=== PATIENT | male | born 1980 | race Caucasian/White ===

== ENCOUNTER 2019-01-21 23:15 | Inpatient (IN) ==
[2019-01-22 00:20] LABS: Appearance Urine Clear (Clear); Bilirubin Urine Negative (Negative); Blood Urine Negative (Negative); Color Urine Yellow; Glucose Urine UA Negative (Negative); Ketones Urine Negative (Negative); Leukocyte Esterase Urine Negative (Negative); Nitrite Urine Negative (Negative); Protein Urine Negative (Negative); Specific Gravity Urine 1.013 (1.000-1.030); Urobilinogen Urine Negative (Negative); pH Urine 6.5 (4.5-7.5)
[2019-01-22 00:21] LABS: Basophils # (auto) 0.07 K/uL (0-0.2); Basophils % (auto) 0.8 %; Eosinophils # (auto) 0.34 K/uL (0-0.5); Eosinophils % (auto) 3.7 %; Hematocrit (blood only) 42.1 % (42-52); Hemoglobin 15.2 g/dL (14.0-18.0); Immature Granulocytes # (auto) 0.02 K/uL (0.00-0.02); Immature Granulocytes % (auto) 0.2 %; Lymphocytes # (auto) 2.54 K/uL (1.2-3.4); Lymphocytes % (auto) 27.5 %; Mean Corpuscular Hemoglobin 30.7 pg (25-34); Mean Corpuscular Hgb Conc 36.1 g/dL (32-36); Mean Corpuscular Volume 85.1 fL (80-100); Mean Platelet Volume 9.9 fL (7.4-10.4); Monocytes # (auto) 0.95 K/uL (0.11-0.59); Monocytes % (auto) 10.3 %; Neutrophils # (auto) 5.31 K/uL (1.4-6.5); Neutrophils % (auto) 57.5 %; Platelet Count 225 K/uL (130-400); RDW Coefficient of Variation 12.1 % (11.5-14.5); RDW Standard Deviation 37.4 fL (36.4-46.3); Red Blood Count 4.95 M/uL (4.7-6.1); White Blood Count 9.23 K/uL (4.8-10.8)
[2019-01-22 00:40] LABS: Albumin Level 3.8 gm/dl (3.4-5.0); BUN Creatinine Ratio 10.5 (10-20); Calcium 8.6 mg/dl (8.5-10.1); Creatinine Clr Calc Pharmacy 84.8 ml/min; Est GFR (Non-African American) 62.9; Magnesium 2.3 mg/dl (1.8-2.4); Potassium 4.2 mmol/L (3.5-5.1)
[2019-01-22 00:54] LABS: Bilirubin,Total 0.4 mg/dl (0.2-1); Globulin 3.7 gm/dl (2.5-4.0); Thyroid Stimulating Hormone 2.95 uIu/ml (0.300-4.500); Total Protein 7.5 gm/dl (6.4-8.2)
[2019-01-22 01:10] LABS: Lyme Ab IgG w/WB Rflx Negative (Negative)
[2019-01-22 01:11] LABS: Lyme Ab IgM w/WB Rflx Equivocal (Negative)
[2019-01-22] MEDS ORDERED: GADOBUTROL 65ML VIAL IV PRN (02:15)
[2019-01-22] MEDS: SODIUM CHLORIDE 0.9% 500 ML IV SCH ×2 (02:44→06:35)
--- NOTE | 2019-01-22 05:40 | History & Physical Report ---
Date of Service January 22, 2019 Assessment & Plan (1) Muscle weakness: 38-year-old male with no significant past medical or surgical history presenting with 2 weeks of proximal muscle weakness/fatigability, distal muscle weakness in the legs manifested his foot drop and gait instability, distal paresthesias in the fingers and toes. Symptoms are constant. No family history of myopathy or muscular disease. Possible precipitating factors include workout supplement use, tick bite, less likely injury from nail. Neurological exam within no objective muscle weakness or tenderness. Patient does have some gait instability, positive Romberg and difficulty writing. 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 -Admit to medical floor -We will check aldolase, LDH, ESR, CRP, ADE, B12, vitamin D - we will follow-up on Lyme serology. Also check for ehrlichiosis and anaplasmosis -Patient may need EMG and muscle biopsy in the future -Neurology consult. Appreciate assistance. Present on Admission?: Yes (2) Gait instability: As above. -Fall precautions Present on Admission?: Yes (3) Paresthesias: As above. Present on Admission?: Yes (4) Rhabdomyolysis: Elevated CK at 1241. -Normal saline at 125 mL/h x 2 L -Repeat CK prior to discharge -Patient may need muscle biopsy in the future FENnormal saline at 125 mL/h x 2 L, electrodes within normal limits, regular diet as tolerated Prophylaxis-Lovenox for DVT prophylaxis Code-full Disposition-admit to medical floor Present on Admission?: Yes History of Present Illness Chief Complaint: Muscle weakness Primary Care Provider: Daniel Villalta Rex Muñoz is a pleasant 38-year-old male with no significant past medical or surgical history presenting with muscle weakness and elevated CK. Patient was seen in the ER on 01/15 similar complaints. Symptoms began around January 08. He is complaining of muscle weakness mostly present in the hips and shoulders. Patient reports having difficulty getting up from a seated position as well as difficulty performing overhead tasks. He also comments on easy fatigability of his proximal muscles. He has paresthesias of his fingers and toes bilaterally which are worsened with walking and prolonged standing. Patient has a difficult time holding a pen to write. He has an unsteady gait, feels as though he cannot fully lift his legs and that his feet drag. This has resulted in 2 falls in the home over the last few days. No head trauma or loss of consciousness. He has some muscle stiffness. He also had some cramping in his bilateral calves and feet last week which has since resolved. He is also complaining of painful touch to the base of his skull and from his scientologist down his jaw bilaterally. States he gets cramping in his jaw and claudication with chewing. He denies muscle pain, myoclonic jerking or twitching. He denies fevers, chills, sweats, weight loss He denies slurred speech, difficulty swallowing, blurry vision or loss of vision, ptosis, pain with eye movement He has had multiple tick bites in the past. Had confirmed Lyme disease approximately a year and a half ago which was treated with a full course of antibiotics. He had an incident in mid December where he had a superficial wound caused by a haroldo nail. He was seen in the emergency room and administered a tetanus shot. He takes a number of workout supplements - Testone, Growth, Eshred and Latobolic ER course: Normal saline Allergies Allergy/AdvReac Type Severity Reaction Status Date / Time No Known Allergies Allergy Verified 01/21/19 23:55 Home Medications Home Medications Medication Instructions Recorded Confirmed Type omeprazole magnesium [Prilosec OTC] 20 mg PO DAILY 01/21/19 01/21/19 History Past Med/Surg History Medical History Lyme disease (Chronic) GERD (gastroesophageal reflux disease) No significant past surgical history Family History Mother Heart disease Social History Preferred Language: Guamanian Feels Safe at Home: Yes Smoking Status: Former smoker Hx Alcohol Use: Yes (Social use) Hx Substance Use: No Review of Systems Review of Systems: All systems reviewed & are unremarkable except as noted in HPI & below Physical Exam Physical Exam: General: patient resting comfortably, NAD, anxious but non- toxic in appearance, AA&O x 4 Skin: warm, dry, intact, no rashes or lesions HEENT: NC/AT, PERRL, EOMI, anicteric sclera, conjunctiva without injection, external ear normal to inspection and nontender, nares patent, moist mucus membranes, dentition intact, no oropharyngeal lesions, neck supple, trachea midline, no LAD, no thyromegaly, no JVD, tenderness with palpation of bilateral temporal region down to jaw Heart: +S1/S2, regular, no m/r/g Lungs: equal air entry bilaterally, no rales/rhonchi/wheezes Abd: +BS, soft, NT/ND, no masses/organomegaly/ascites Ext: warm, 2+ pulses in UE/LE bilaterally, no clubbing/cyanosis or edema Neuro: Patient awake alert and oriented x4, speech fluent/clear and appropriate, cranial nerves II through XII grossly intact, sensation to light touch intact and equal bilaterally, muscle strength 5 out of 5 in bilateral hands/wrists/arms/legs. No pronator drift. Mqlclc-[id number]-erac and vuoy-dx-[id number] in tact. Patient with positive Romberg. Ataxic gait possibly with mild foot drop bilaterally, patient unable to walk heel-to-toe due to imbalance. Difficulty writing. Results & Data Vital Signs (Past 12 Hours) Vital Signs Temp Pulse Resp BP Pulse Ox 01/22/19 04:55 78 20 144/95 H 96 01/22/19 02:41 77 20 97 01/22/19 02:40 146/84 H 01/22/19 01:00 75 14 96 01/22/19 00:30 77 14 97 01/22/19 00:16 79 15 96 01/22/19 00:09 96 01/21/19 23:20 36.7 C 80 20 154/104 H 97 Laboratory Results Lab Results 01/22/19 01/22/19 01/22/19 Range/Units 00:00 00:02 00:02 WBC 9.23 (4.8-10.8) K/uL RBC 4.95 (4.7-6.1) M/uL Hgb 15.2 (14.0-18.0) g/dL Hct 42.1 (42-52) % MCV 85.1 (80-100) fL MCH 30.7 (25-34) pg MCHC 36.1 H (32-36) g/dL RDW Std Deviation 37.4 (36.4-46.3) fL RDW Coeff of Ricardo 12.1 (11.5-14.5) % Plt Count 225 (130-400) K/uL MPV 9.9 (7.4-10.4) fL Immature Gran % (Auto) 0.2 % Neut % (Auto) 57.5 % Lymph % (Auto) 27.5 % Blount % (Auto) 10.3 % Eos % (Auto) 3.7 % Baso % (Auto) 0.8 % Immature Gran # (Auto) 0.02 (0.00-0.02) K/uL Neut # (Auto) 5.31 (1.4-6.5) K/uL Lymph # (Auto) 2.54 (1.2-3.4) K/uL Blount # (Auto) 0.95 H (0.11-0.59) K/uL Eos # (Auto) 0.34 (0-0.5) K/uL Baso # (Auto) 0.07 (0-0.2) K/uL Sodium 138 (136-145) mmol/L Potassium 4.2 (3.5-5.1) mmol/L Chloride 106 (98-107) mmol/L Carbon Dioxide 26 (21-32) mmol/L Anion Gap 6.0 (3-11) BUN 15 (7-18) mg/dl Creatinine 1.39 (0.6-1.4) mg/dl Est Cr Clr Drug Dosing 84.8 ml/min Est GFR ( Amer) 73.0 Est GFR (Non-Af Amer) 62.9 BUN/Creatinine Ratio 10.5 (10-20) Glucose 119 H (70-99) mg/dl Calcium 8.6 (8.5-10.1) mg/dl Magnesium 2.3 (1.8-2.4) mg/dl Total Bilirubin 0.4 (0.2-1) mg/dl AST 46 H (15-37) U/L ALT 73 (12-78) U/L Alkaline Phosphatase 80 (45-117) U/L Total Creatine Kinase 1241 H (39-308) U/L Total Protein 7.5 (6.4-8.2) gm/dl Albumin 3.8 (3.4-5.0) gm/dl Globulin 3.7 (2.5-4.0) gm/dl Albumin/Globulin Ratio 1.0 (0.9-2) TSH 2.950 (0.300-4.500) uIu/ml Urine Color Yellow Urine Appearance Clear (Clear) Urine pH 6.5 (4.5-7.5) Ur Specific [place] 1.013 (1.000-1.030) Urine Protein Negative (Negative) Urine Glucose (UA) Negative (Negative) Urine Ketones Negative (Negative) Urine Blood Negative (Negative) Urine Nitrite Negative (Negative) Urine Bilirubin Negative (Negative) Urine Urobilinogen Negative (Negative) Ur Leukocyte Esterase Negative (Negative) Lyme Disease IgG Ab (Negative) Lyme Disease IgM Ab (Negative) 01/22/19 Range/Units 00:02 WBC (4.8-10.8) K/uL RBC (4.7-6.1) M/uL Hgb (14.0-18.0) g/dL Hct (42-52) % MCV (80-100) fL MCH (25-34) pg MCHC (32-36) g/dL RDW Std Deviation (36.4-46.3) fL RDW Coeff of Ricardo (11.5-14.5) % Plt Count (130-400) K/uL MPV (7.4-10.4) fL Immature Gran % (Auto) % Neut % (Auto) % Lymph % (Auto) % Blount % (Auto) % Eos % (Auto) % Baso % (Auto) % Immature Gran # (Auto) (0.00-0.02) K/uL Neut # (Auto) (1.4-6.5) K/uL Lymph # (Auto) (1.2-3.4) K/uL Blount # (Auto) (0.11-0.59) K/uL Eos # (Auto) (0-0.5) K/uL Baso # (Auto) (0-0.2) K/uL Sodium (136-145) mmol/L Potassium (3.5-5.1) mmol/L Chloride (98-107) mmol/L Carbon Dioxide (21-32) mmol/L Anion Gap (3-11) BUN (7-18) mg/dl Creatinine (0.6-1.4) mg/dl Est Cr Clr Drug Dosing ml/min Est GFR ( Amer) Est GFR (Non-Af Amer) BUN/Creatinine Ratio (10-20) Glucose (70-99) mg/dl Calcium (8.5-10.1) mg/dl Magnesium (1.8-2.4) mg/dl Total Bilirubin (0.2-1) mg/dl AST (15-37) U/L ALT (12-78) U/L Alkaline Phosphatase (45-117) U/L Total Creatine Kinase (39-308) U/L Total Protein (6.4-8.2) gm/dl Albumin (3.4-5.0) gm/dl Globulin (2.5-4.0) gm/dl Albumin/Globulin Ratio (0.9-2) TSH (0.300-4.500) uIu/ml Urine Color Urine Appearance (Clear) Urine pH (4.5-7.5) Ur Specific [place] (1.000-1.030) Urine Protein (Negative) Urine Glucose (UA) (Negative) Urine Ketones (Negative) Urine Blood (Negative) Urine Nitrite (Negative) Urine Bilirubin (Negative) Urine Urobilinogen (Negative) Ur Leukocyte Esterase (Negative) Lyme Disease IgG Ab Negative (Negative) Lyme Disease IgM Ab Equivocal A (Negative) Diagnostic Findings MRI C-spine: Per stat rad-spinal cord is normal in signal and caliber. C3-C4 posterior disc bulge and non-convertible osteophytes cause mild canal and mild bilateral foraminal stenosis. C4-C5 posterior disc protrusion and on convertible osteophytes cause mild canal and mild bilateral foraminal stenosis. C5-C6 posterior disc bulge cause mild canal, moderate left and mild right foraminal stenosis. No evidence of fracture or malalignment MRI brain: Per stat rad-no intracranial hemorrhage, mass-effect or edema. No foci of acute ischemia. No abnormal foci of signal or enhancement in the brain parenchyma ECG Additional Comments: The study shows normal sinus rhythm at 72 bpm normal axis and intervals, no evidence of acute ischemia. Study unchanged from prior 01/15/2019 Code Status & VTE Plan Code Status Full code VTE Prophylaxis Plan VTE Prophylaxis will be ordered: Yes PG Care Time/CCT Total # of Minutes Spent Total Time Spent with Patient: Total time spent is greater than 50% in coordination of care (as documented) at patient's floor/unit and/or counseling patient: (1) Rhabdomyolysis Rhabdomyolysis type: non-traumatic Qualified Code(s): M62.82 - Rhabdomyolysis
[2019-01-22] MEDS ORDERED: ACETAMINOPHEN 325 MG TAB PO PRN (06:18)
[2019-01-22] MEDS: SODIUM CHLORIDE 0.9% 1000ML 1,000 ML IV SCH ×2 (06:30→16:20)
[2019-01-22] MEDS ORDERED: TRAMADOL HCL 50 MG TABLET PO PRN (06:34)
--- NOTE | 2019-01-22 07:48 | Magnetic Resonance Report ---
CERVICAL SPINE MRI HISTORY: c-spine pain with cervical radicular symptoms TECHNIQUE: Multiplanar multisequence MRI of the cervical spine was performed without the use of contr ast. COMPARISON STUDY: None. FINDINGS: Straightening of the cervical spine. Minimal disc space narrowing at C4-C5 and C5-C6. Riddhi l marrow signal intensity seen throughout the visualized osseous structures. No fracture or subluxati on. Prevertebral soft tissues and the C1-C2 interval are intact. The visualized posterior fossa is un remarkable. Slight dilatation of the central canal within the cervical spinal cord at the C7 level. T his measures approximately 1 cm length. The central canal measures up to 2 mm in maximal diameter. Ot herwise, the cervical spinal cord demonstrates a normal signal intensity. C2-C3: No significant central canal or neural foraminal narrowing. C3-C4: Tiny broad-based posterior disc bulge without significant central canal or neural foraminal na rrowing. C4-C5: Small broad-based posterior disc bulge with a small focal central disc protrusion. This abuts but does not significantly deform the anterior cord. There is mild bilateral neural foraminal narrowi ng due to the uncovertebral hypertrophy. C5-C6: Broad-based posterior disc bulge resulting in near complete effacement of the anterior thecal sac without cord deformity. There is mild right and moderate left neural foraminal narrowing. C6-C7: No significant central canal or neural foraminal narrowing. C7-T1: No significant central canal or neural foraminal narrowing. IMPRESSION: 1. Mild degenerative disc disease C3-C6 as described above. 2. Tiny syrinx at the C7 level. Otherwise, the cervical spinal cord is within normal limits. Electronically signed by: Kane Alfonso M.D. 01/22/2019 7:47 AM
--- NOTE | 2019-01-22 07:53 | Magnetic Resonance Report ---
Brain MRI WITH AND WITHOUT CONTRAST HISTORY: extremity weakness/numbness TECHNIQUE: Multiplanar multisequence MRI of the brain was performed both before and after the intrave nous administration of contrast. COMPARISON STUDY: None. FINDINGS: There are no areas of restricted diffusion to suggest acute infarction. The midline structu res are intact. The paranasal sinuses are clear. The mastoid air cells are clear. The ventricles and sulci are within normal limits for age. There is no mass, hematoma, midline shift. The major vascular flow-voids at the skull base are well maintained. Postcontrast sequences show no areas of abnormal e nhancement. IMPRESSION: No acute intracranial abnormality. Electronically signed by: Kane Alfonso M.D. 01/22/2019 7:52 AM
[2019-01-22] MEDS: PANTOprazole 40 MG TAB PO SCH (10:41)
[2019-01-22] MEDS: ENOXAPARIN INJ 40 MG/0.4 ML SYR SQ SCH (10:41)
[2019-01-22] MEDS ORDERED: cefTRIAXone SODIUM 2,000 MG in DEXTROSE 5% 50 ML IV SCH (12:00)
--- NOTE | 2019-01-22 13:04 | Neurology Consultation ---
Date of Consultation January 22, 2019 Assessment & Plan (1) Muscle weakness: (2) Paresthesias: (3) Gait instability: (4) Rhabdomyolysis: (5) Lyme disease: Patient has a subacute onset of weakness, fatigue, low back and cervical spine muscular pain, gait disturbance with right hip pain and numbness and dysesthesias in the hands and feet bilaterally. His CK is elevated at over 1200. He has decreased triceps and quadriceps reflexes and absent Achilles reflexes on exam. MRI of the brain was unremarkable. 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 There are no upper motor neuron signs in the lower extremities and I do not think the syrinx is clinically active. His Lyme antibody titer was equivocal for IgM Western blot is pending. He has pulled multiple ticks off his body this summer. Overall, this patient may have weakness, pain, and numbness from acute Lyme disease. Other tick-borne illnesses are possible. He has been on supplements for his weight training over the last month. Unfortunately we do not have the ingredients of these 4 different products. These may be contributing to his symptoms as well. There is no other metabolic, infectious, endocrine or inflammatory condition identified so far. Do not believe this fits with acute inflammatory demyelinating polyneuropathy (Guillain-[place] syndrome) Recommendations 1. Physical therapy 2. Awaiting Lyme Western blot but initiate ceftriaxone empirically 3. Follow CKs and awaiting aldolase. 4. Could consider MRI of the lumbar spine. I see no reason for a lumbar puncture. 5. Discontinue his weight training supplements. We need to get the bottles in or figure this out from online pictures to see with the ingredients are. 6. Consider EMG and nerve conduction studies as an outpatient next week if still needed. Overall, I spent a total of 80 minutes with this case including review of records, review of MRI films, direct evaluation the patient bedside, and discussion of the case with the patient at bedside and Dr. Beauchamp, including differential diagnosis and treatment options. History of Present Illness Reason for Consultation: Year old, who I was asked to see at the request of Dr. Beauchamp, for neurologic consultation regarding weakness and elevated CK. Requesting Physician: Dr. Beauchamp Attending Physician: Epifanio Beauchamp, DO History of Present Illness Patient has no history of neurologic conditions including weakness or numbness in the past. He has never had significant head trauma or meningitis. About a year and half ago he had a tick bite which made him sore all over and tired. He was treated with oral pills and his symptoms resolved. About 2 months ago he started a new workout regimen which involved doing pushups, pull-ups, curls, squats, and lunges, etc. Approximately 1 month ago he started taking 4 different supplements 5 star which include a fat burner, estrogen sera, testosterone booster, and a 4th one of which he is not sure. About 2 weeks ago he had the onset of pins and needle sensations in his finger tips. The next day involved his feet. He also noted weakness in the muscles in general in all 4 limbs symmetrically. The muscles themselves were not tender or sore but he was noticeably weak. At the same time he started getting low back pain of a non radiating nature. He had pain at the base of the skull as well. This translated to a pressure headache all over. He had no vision problems, swallowing issues, speech problems, confusion, or incontinence. His jaws became very sore and achy any could not open his mouth all the way. He would have cramps in his calves bilaterally. He was in the emergency room January 15 with a blood pressure 156/99 and was afebrile. CK was 1099 and then an hour to later after hydration was 837. Continue to have symptoms of the numbness and dysesthesias distally in his hands and feet as well as the weakness. His gait was affected any at some hip pain on the right and fell twice January 21. He lost his balance and his leg buckled he felt. He was admitted to our institution on January 22. He is fatigued as well. CBC was unremarkable. Sed rate was 10. Chem profile was unremarkable and LDH was 171. AST was 46 and CK was 1241. Urinalysis was negative. ADE, B12, and aldolase are pending. TSH was 2.95. Lyme IgM was equivocally positive and Western blot is pending. He is going to be started on ceftriaxone. Today this morning he feels was the same as he did yesterday with no changes. A pressure is 134/88. MRI of the brain was unremarkable. MRI of the cervical spine shows some minor degenerative changes at multiple levels and no significant spinal stenosis. There was a slightly dilated central canal over 1 centimeter at the C7 level. It was no more than 1-2 millimeters diameter. I reviewed all these films. Allergies Allergy/AdvReac Type Severity Reaction Status Date / Time No Known Allergies Allergy Verified 01/21/19 23:55 Home Medications Home Medications Medication Instructions Recorded Confirmed Type omeprazole magnesium [Prilosec OTC] 20 mg PO DAILY 01/21/19 01/21/19 History Patient History Medical History Lyme disease (Chronic) GERD (gastroesophageal reflux disease) No significant past surgical history Surgical History S/P wisdom tooth extraction Family History Mother Heart disease Father Stomach cancer Social History Preferred Language: Macedonian Communication Ability: Effective Hr Coordinator Required: No Beliefs That Will Affect Care: None Current Living Situation: Alone current occupational status: employed 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 Feels Safe at Home: Yes Smoking Status: Former smoker Tobacco Type: cigarettes ; Number of Years Since Quit: 15 ; Hx Alcohol Use: Yes Alcohol type: beer Alcohol Intake Frequency Comment: One per week Hx Substance Use: No Review of Systems Constitutional: + fatigue and + weakness; no fever Eyes: no diplopia, no eye pain and no worsening vision Ear, Nose, Mouth, Throat: no ear pain, no tinnitus, no hearing loss, no dizziness, no snoring, no hoarseness and no dysphagia Respiratory: no cough and no dyspnea Cardiovascular: no chest pain, no palpitations and no lightheadedness Gastrointestinal: no abdominal pain, no nausea and no vomiting Genitourinary: no dysuria and no urinary incontinence Musculoskeletal: + back pain and + neck pain; no radicular pain, no joint pain and no myalgia Integumentary: no rash and no lesions Neurologic: + gait abnormality, + generalized weakness, + loss of sensation, + tingling, + numbness, + paresthesia and + headache(s); no localized weakness, no tremor(s), no abnormal movements, no abnormal speech, no confusion and no memory loss Psychiatric: no depression, no irritability, no anxiety, no difficulty concentrating, no confusion and no hallucinations Endocrine: + fatigue; no flushing Hematologic / Lymphatic: no easy bleeding and no easy bruising Allergy / Immunological: no urticaria and no problem reported Physical Exam Physical Exam: The patient is right-handed. The patient is awake, alert, and attentive. Speech is normal without any aphasia or dysarthria. She can name objects, repeat phrases, and has normal spontaneous speech. Mentation and thought processes are intact, with orientation to person, place and time, and normal fund of knowledge. Attention and concentration are normal. Mood and affect are normal and appropriate. General appearance and grooming are normal. Short and long-term memory are intact. The discs are sharp with positive venous pulsations bilaterally. There are no exudates, hemorrhages, or blood vessel changes seen. Pupils are 4 mm bilaterally and reactive to light. Extraocular eye muscles are intact without nystagmus. Visual acuity and visual mcadams seem normal grossly to confrontation. There are no deficits to sensation in the face in all 3 distributions of the fifth cranial nerve bilaterally. Corneal reflexes are positive bilaterally. Facial strength and symmetry was normal bilaterally. Hearing seems normal to whisper and finger rub bilaterally. Palate moves well without asymmetry. There is normal sternocleidomastoid and trapezius (shoulder shrug) strength bilaterally. Tongue is midline with good strength bilaterally. Neck has a full range of motion without discomfort. There are no cervical bruits bilaterally. There are no cranial or ocular bruits. Heart is without murmur. There is a regular rhythm and rate. Cervical, thoracic, and lumbar spine are nontender to palpation. Gait is narrow based, with good arm swing, turns, and stance. Patient limps some secondary to right hip pain. Stance is good feet together and eyes open. With outstretched arms there is no drift. There are no resting, postural, or action tremors. There is no ataxia with finger to nose testing. There is good facility in the hands. No other abnormal involuntary movements are noted. Motor strength is 4/5 proximally in the arms with deltoids bilaterally. Biceps and triceps are 4+/5. Online Retail[employer] and intrinsic hand muscles are 4/5 bilaterally. W rist flexor and extensors are 4+/5 bilaterally. Hip flexor strength is 4/5 bilaterally. Quadriceps, hamstring, tibialis anterior, gastrocnemius, and toe extensors are 5/5 bilaterally. The limbs have good tone without rigidity or spasticity. There is no atrophy noted in the muscles. Muscle bulk is normal, there is no tenderness to palpation, no myotonia to percussion, and no fasciculations seen. Sensory examination reveals some decreased sensation to pin and touch in a stocking-glove distribution to the ankles and wrists bilaterally. More proximally sensation is spared. Reflexes are 2/4 in the biceps and brachioradialis tendons bilaterally. Triceps and quadriceps tendon reflexes are 1/4 bilaterally. Achilles tendon reflexes are absent bilaterally. There is no clonus bilaterally. Toes are downgoing with plantar stimulation bilaterally. Peripheral pulses are present and of normal quality distally in all 4 limbs. There is no peripheral edema noted in the limbs. Results & Data Vital Signs (Past 12 Hours) Vital Signs Temp Pulse Pulse Resp BP BP Pulse Ox 01/22/19 11:13 36.8 C 79 18 134/88 95 01/22/19 06:31 37.2 C 92 H 16 157/93 H 96 01/22/19 04:55 78 20 144/95 H 96 01/22/19 02:41 77 20 97 01/22/19 02:40 146/84 H 01/22/19 01:00 75 14 96 Diagnostic Findings Brain MRI WITH AND WITHOUT CONTRAST HISTORY: extremity weakness/numbness TECHNIQUE: Multiplanar multisequence MRI of the brain was performed both before and after the intravenous administration of contrast. COMPARISON STUDY: None. FINDINGS: There are no areas of restricted diffusion to suggest acute infar ction. The midline structures are intact. The paranasal sinuses are clear. The mastoid air cells are clear. The ventricles and sulci are within normal limits for age. There is no mass, hematoma, midline shift. The major vascular flow- voids at the skull base are well maintained. Postcontrast sequences show no areas of abnormal enhancement. IMPRESSION: No acute intracranial abnormality. Electronically signed by: Kane Alfonso M.D. 01/22/2019 7:52 AM [facility], [place] [phone] Magnetic Resonance Report Patient: ENDY ROSENBAUM AAdmit Date: 01/22/19 MR#: [id number]: [address] Acct ID:[id number]: Date: 1980[facility] Zip: [place] [id number] Age: 38Location: 2W Sex: M Room[facility]Bed: [facility] Att Phy: Nadya Chou D.O.Diagnosis: GAIT INSTABILITY, ELEVATED CK Maryann Phy: Cece FieldsCYNTHIA Casillas-CService Date: 01/22/19 Fam Phy: Interpreting Phy: Kane Alfonso MD Admit Phy: Nadya Chou D.O. Ordering Phy: Lynn Najera D.O. cc: ~ CERVICAL SPINE MRI HISTORY: c-spine pain with cervical radicular symptoms TECHNIQUE: Multiplanar multisequence MRI of the cervical spine was performed without the use of contrast. COMPARISON STUDY: None. FINDINGS: Straightening of the cervical spine. Minimal disc space narrowing at C4-C5 and C5-C6. Normal marrow signal intensity seen throughout the visualized osseous structures. No fracture or subluxation. Prevertebral soft tissues and the C1-C2 interval are intact. The visualized posterior fossa is unremarkable. Slight dilatation of the central canal within the cervical spinal cord at the C7 level. This measures approximately 1 cm length. The central canal measures up to 2 mm in maximal diameter. Otherwise, the cervical spinal cord demonstrates a normal signal intensity. C2-C3: No significant central canal or neural foraminal narrowing. C3-C4: Tiny broad-based posterior disc bulge without significant central canal or neural foraminal narrowing. C4-C5: Small broad-based posterior disc bulge with a small focal central disc protrusion. This abuts but does not significantly deform the anterior cord. There is mild bilateral neural foraminal narrowing due to the uncovertebral hypertrophy. C5-C6: Broad-based posterior disc bulge resulting in near complete effacement of the anterior thecal sac without cord deformity. There is mild right and moderate left neural foraminal narrowing. C6-C7: No significant central canal or neural foraminal narrowing. C7-T1: No significant central canal or neural foraminal narrowing. IMPRESSION: 1. Mild degenerative disc disease C3-C6 as described above. 2. Tiny syrinx at the C7 level. Otherwise, the cervical spinal cord is within normal limits. Electronically signed by: Kane Alfonso M.D. 01/22/2019 7:47 AM [facility] Care Time/CCT Total # of Minutes Spent Total Time Spent with Patient: Total time spent is greater than 50% in coordination of care (as documented) at patient's floor/unit and/or counseling patient: (1) Rhabdomyolysis Rhabdomyolysis type: non-traumatic Qualified Code(s): M62.82 - Rhabdomyolysis
--- NOTE | 2019-01-22 15:38 | Emergency Department Note ---
Entered by Daniel Perez acting as a scribe for Lynn Najera DO History of Present Illness General Chief complaint: Neuro Symptoms/Deficit Stated complaint: NO FEELING IN FINGERS, FEET, PAIN IN NECK Time Seen by Provider: 01/21/19 23:39 Source: patient History of Present Illness Onset (ago): week(s) 2 Location: upper extremity (weakness) and lower extremity (weakness) Pain Consistency: + other (worsening) Maximum Pain Intensity: 4 Quality: + other ("pins and needles" numbness) Associated symptoms: + denies other symptoms (trouble with urination, trouble with bowel movements and confusion) and + other (constant lower back pain, pain at the base of his skull, and calf pain); no fever/chills and no nausea/vomiting The patient is a 38 year old M who presents to the Emergency Room with complaints of worsening weakness that started 2 weeks ago. The patient states that his symptoms started 2 weeks ago with numbness in his fingers. He describes his prior numbness as pins and needles. He notes that his pins and needles numbness progressed to his toes. He states that he is currently experiencing weakness in all 4 of his extremities. He notes that due to this weakness, he has fallen 2 times while walking. He denies that he hurt himself from the fall. He adds that he is also experiencing constant lower back pain, pain at the base of his skull, and calf pain. He denies that he is currently experiencing fevers, chills, nausea, vomiting, trouble with urination, trouble with bowel movements and confusion. He notes that he was in the ED recently for similar symptoms. He notes that prior to his ED visit, he had blood tests done which were normal. He adds that since his last ED visit, he has drank an increased amount of water because of the diagnosed elevated total CK. He denies any alcohol or drug use. Had been using workout supplements but stopped taking those after the last emergency department visit. He states that he has a history of Lymes disease. He adds that prior to his onset of Lymes disease he noticed a tick bite on his body. He adds that he took antibiotics for Lymes disease but notes that he has felt tired since then. He denies that he has a family history of neurological issues. He adds that his mother has heart disease. Home Medications Home Medications Medication Instructions Recorded Confirmed Type omeprazole magnesium [Prilosec OTC] 20 mg PO DAILY 01/21/19 01/21/19 History Allergies Allergy/AdvReac Type Severity Reaction Status Date / Time No Known Allergies Allergy Verified 01/21/19 23:55 Past Med/Surg History Medical History Lyme disease (Chronic) GERD (gastroesophageal reflux disease) No significant past surgical history Surgical History S/P wisdom tooth extraction Family History Mother Heart disease Father Stomach cancer Social History Preferred Language: Hungarian Communication Ability: Effective Market Research Intern Required: No Beliefs That Will Affect Care: None Current Living Situation: Alone current occupational status: employed 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 and A total of 10 systems reviewed and were otherwise negative Physical Exam Vital Signs Vital Signs - 24 hr 01/21/19 23:20 01/22/19 00:09 01/22/19 00:16 Temperature 36.7 C Temperature Source Oral Sepsis Action Taken by Nursing No Action Required Pulse Rate 80 79 Pulse Rate from SpO2 Sensor 76 Respiratory Rate 20 15 Respiratory Effort / Characteristics Non-Labored Spontaneous Respiratory Depth Normal Blood Pressure 154/104 H Blood Pressure Mean 120 Pulse Oximetry 97 96 96 Oxygen Delivery Method Room Air Room Air 01/22/19 00:30 01/22/19 01:00 01/22/19 02:40 Temperature Temperature Source Sepsis Action Taken by Nursing Pulse Rate 77 75 Pulse Rate from SpO2 Sensor 78 74 Respiratory Rate 14 14 Respiratory Effort / Characteristics Respiratory Depth Blood Pressure 146/84 H Blood Pressure Mean 104 Pulse Oximetry 97 96 Oxygen Delivery Method 01/22/19 02:41 01/22/19 04:55 Temperature Temperature Source Sepsis Action Taken by Nursing Pulse Rate 77 78 Pulse Rate from SpO2 Sensor 78 Respiratory Rate 20 20 Respiratory Effort / Characteristics Respiratory Depth Blood Pressure 144/95 H Blood Pressure Mean 111 Pulse Oximetry 97 96 Oxygen Delivery Method Room Air HEENT: Head - normocephalic and atraumatic. Pupils are equal, round, and reactive to light. Extraocular eye muscles are intact and sclera are anicteric. Ears - bilaterally patent canals with noninjected tympanic membranes and no evidence of hemotympanum. Nose - moist nasal mucosa without discharge. Mouth - moist buccal mucosa. Oropharynx is nonerythematous and there is no tonsillar exudate or edema noted. Neck: Supple; no JVD, nuchal rigidity, cervical lymphadenopathy, or auscultated bruits. Heart: Regular rate and rhythm. There is a normal S1 and S2 with no murmurs, clicks, or gallops appreciated. Lungs: Clear to auscultation bilaterally with no wheezes, rales, or rhonchi. Abdomen: Soft, completely nontender, nondistended, with good bowel sounds. There are no palpable pulsatile masses or hepatosplenomegaly. There is no guarding, rigidity, or rebound noted. Extremities: No evidence of cyanosis, clubbing, or edema. There are easily palpable peripheral pulses. Neuro: The patient is awake and alert, oriented to day, time, and place. Muscle strength is 5/5 in all 4 extremities. The patient has equal core paster strength and equal pedal push and pull. There are no cerebellar signs. Cranial nerves II-XII are intact. Course 2344: The patient was evaluated in room C9. A complete history and physical exam was performed. I reviewed the patient's past medical records. 0159: Sodium Chloride (Nss) 500 mls @ 125 mls/hr IV 0214: The patient went for MRI of the brain and cervical spine 0305: The patient has been switched to room B6. 0414: The reviewed the results with the patient. I suggested to the patient that he should stay for observation or admission. The patient states that he will discuss it with his . 0438: The patient has decided to stay for admission. 0445: I reviewed the patient's case with Dr. Nadya Chou [facility] Hospitalist. She will evaluate the patient for further management. Consultations Consultation #1: I reviewed the patient's case with Dr. Nadya Chou [facility] Hospitalist. She will evaluate the patient for further management Time: 04:45 Administered Medications Acetaminophen (Tylenol) 650 mg PO Q4H PRN PRN Reason: pain/fever Stop: 02/21/19 06:17 Last Admin: 01/22/19 06:33 Dose: 650 mg Documented by: [id number] Enoxaparin Sodium (Lovenox) 40 mg SQ Q24H RACHEAL Stop: 02/21/19 07:59 Last Admin: 01/22/19 10:41 Dose: 40 mg Documented by: [id number] Sodium Chloride (Nss 1000ml) 1,000 mls @ 125 mls/hr IV .Q8H RACHEAL Stop: 01/22/19 22:29 Last Infusion: 01/22/19 14:06 Dose: 125 mls/hr Documented by: [id number] Infusion: 01/22/19 12:57 Dose: 0 mls/hr Documented by: [id number] Admin: 01/22/19 06:30 Dose: 125 mls/hr Documented by: [id number] Ceftriaxone Sodium 2,000 mg/ (Dextrose) 70 mls @ 100 mls/hr IV Q24H RACHEAL; Protocol Stop: 02/01/19 11:59 Last Infusion: 01/22/19 13:40 Dose: 0 mls/hr Documented by: [id number] Admin: 01/22/19 12:56 Dose: 100 mls/hr Documented by: [id number] Pantoprazole Sodium (Protonix) 40 mg PO DAILY RACHEAL Stop: 02/21/19 08:59 Last Admin: 01/22/19 10:41 Dose: 40 mg Documented by: [id number] Discontinued Medications Gadobutrol (Gadavist 65ml) 11 ml IV ONCE PRN PRN Reason: Interaction Checking Stop: 01/26/19 02:14 Last Admin: 01/22/19 02:15 Dose: 11 ml Documented by: [id number] Sodium Chloride (Nss) 500 mls @ 125 mls/hr IV .Q4H RACHEAL Stop: 02/21/19 01:59 Last Admin: 01/22/19 06:35 Dose: Not Given Documented by: [id number] Infusion: 01/22/19 06:35 Dose: 0 mls/hr Documented by: [id number] Admin: 01/22/19 02:44 Dose: 125 mls/hr Documented by: [id number] Medical Decision Making Differential Diagnosis Differential diagnosis includes: Guyon Dutta syndrome, myositis, myasthenia gravis, demyelinating disorder, recurrent Lyme, exacerbation of chronic Lyme, rhabdomyolysis, hyponatremia Medical Records Attestation: I reviewed the patient's medical records. Home Medications Current Medication List: was personally reviewed by me Laboratory Data Attestation: I reviewed the patient's lab results. Result diagrams: 01/22/19 00:02 01/22/19 00:02 Lab Results 01/22/19 01/22/19 01/22/19 Range/Units 00:00 00:02 00:02 WBC 9.23 (4.8-10.8) K/uL RBC 4.95 (4.7-6.1) M/uL Hgb 15.2 (14.0-18.0) g/dL Hct 42.1 (42-52) % MCV 85.1 (80-100) fL MCH 30.7 (25-34) pg MCHC 36.1 H (32-36) g/dL RDW Std Deviation 37.4 (36.4-46.3) fL RDW Coeff of Ricardo 12.1 (11.5-14.5) % Plt Count 225 (130-400) K/uL MPV 9.9 (7.4-10.4) fL Immature Gran % (Auto) 0.2 % Neut % (Auto) 57.5 % Lymph % (Auto) 27.5 % Falls % (Auto) 10.3 % Eos % (Auto) 3.7 % Baso % (Auto) 0.8 % Immature Gran # (Auto) 0.02 (0.00-0.02) K/uL Neut # (Auto) 5.31 (1.4-6.5) K/uL Lymph # (Auto) 2.54 (1.2-3.4) K/uL Falls # (Auto) 0.95 H (0.11-0.59) K/uL Eos # (Auto) 0.34 (0-0.5) K/uL Baso # (Auto) 0.07 (0-0.2) K/uL Absolute Nucleated RBC 0.00 (0-0) K/uL Nucleated RBC % (auto) 0.0 % Sodium 138 (136-145) mmol/L Potassium 4.2 (3.5-5.1) mmol/L Chloride 106 (98-107) mmol/L Carbon Dioxide 26 (21-32) mmol/L Anion Gap 6.0 (3-11) BUN 15 (7-18) mg/dl Creatinine 1.39 (0.6-1.4) mg/dl Est Cr Clr Drug Dosing 84.8 ml/min Est GFR ( Amer) 73.0 Est GFR (Non-Af Amer) 62.9 BUN/Creatinine Ratio 10.5 (10-20) Glucose 119 H (70-99) mg/dl Calcium 8.6 (8.5-10.1) mg/dl Magnesium 2.3 (1.8-2.4) mg/dl Total Bilirubin 0.4 (0.2-1) mg/dl AST 46 H (15-37) U/L ALT 73 (12-78) U/L Alkaline Phosphatase 80 (45-117) U/L Total Creatine Kinase 1241 H (39-308) U/L Total Protein 7.5 (6.4-8.2) gm/dl Albumin 3.8 (3.4-5.0) gm/dl Globulin 3.7 (2.5-4.0) gm/dl Albumin/Globulin Ratio 1.0 (0.9-2) TSH 2.950 (0.300-4.500) uIu/ml Urine Color Yellow Urine Appearance Clear (Clear) Urine pH 6.5 (4.5-7.5) Ur Specific [place] 1.013 (1.000-1.030) Urine Protein Negative (Negative) Urine Glucose (UA) Negative (Negative) Urine Ketones Negative (Negative) Urine Blood Negative (Negative) Urine Nitrite Negative (Negative) Urine Bilirubin Negative (Negative) Urine Urobilinogen Negative (Negative) Ur Leukocyte Esterase Negative (Negative) Lyme Disease IgG Ab (Negative) Lyme Disease IgM Ab (Negative) 01/22/19 Range/Units 00:02 WBC (4.8-10.8) K/uL RBC (4.7-6.1) M/uL Hgb (14.0-18.0) g/dL Hct (42-52) % MCV (80-100) fL MCH (25-34) pg MCHC (32-36) g/dL RDW Std Deviation (36.4-46.3) fL RDW Coeff of Ricardo (11.5-14.5) % Plt Count (130-400) K/uL MPV (7.4-10.4) fL Immature Gran % (Auto) % Neut % (Auto) % Lymph % (Auto) % Falls % (Auto) % Eos % (Auto) % Baso % (Auto) % Immature Gran # (Auto) (0.00-0.02) K/uL Neut # (Auto) (1.4-6.5) K/uL Lymph # (Auto) (1.2-3.4) K/uL Falls # (Auto) (0.11-0.59) K/uL Eos # (Auto) (0-0.5) K/uL Baso # (Auto) (0-0.2) K/uL Absolute Nucleated RBC (0-0) K/uL Nucleated RBC % (auto) % Sodium (136-145) mmol/L Potassium (3.5-5.1) mmol/L Chloride (98-107) mmol/L Carbon Dioxide (21-32) mmol/L Anion Gap (3-11) BUN (7-18) mg/dl Creatinine (0.6-1.4) mg/dl Est Cr Clr Drug Dosing ml/min Est GFR ( Amer) Est GFR (Non-Af Amer) BUN/Creatinine Ratio (10-20) Glucose (70-99) mg/dl Calcium (8.5-10.1) mg/dl Magnesium (1.8-2.4) mg/dl Total Bilirubin (0.2-1) mg/dl AST (15-37) U/L ALT (12-78) U/L Alkaline Phosphatase (45-117) U/L Total Creatine Kinase (39-308) U/L Total Protein (6.4-8.2) gm/dl Albumin (3.4-5.0) gm/dl Globulin (2.5-4.0) gm/dl Albumin/Globulin Ratio (0.9-2) TSH (0.300-4.500) uIu/ml Urine Color Urine Appearance (Clear) Urine pH (4.5-7.5) Ur Specific [place] (1.000-1.030) Urine Protein (Negative) Urine Glucose (UA) (Negative) Urine Ketones (Negative) Urine Blood (Negative) Urine Nitrite (Negative) Urine Bilirubin (Negative) Urine Urobilinogen (Negative) Ur Leukocyte Esterase (Negative) Lyme Disease IgG Ab Negative (Negative) Lyme Disease IgM Ab Equivocal A (Negative) Imaging Data Radiologist's Impression: Radiology results as stated below per my review and the radiologist's interpretation: MRI C SPINE: Spinal cord is normal in signal and caliber. C3-C4, posterior disc bulge and uncovertebral osteophytes cause mild canal and mild bilateral foraminal stenosis. C4-C5, posterior disc protrusion and uncovertebral osteophytes cause mild canal and mild bilateral foraminal stenoses C5-C6, posterior disc bulge causes mild canal, moderate left and right foraminal stenoses. No evidence of fracture or malalignment. MRI HEAD: No ICH, mass effect or edema. No foci of acute ischemia. No abnormal foci of signal or enhancement in the brain parenchyma. ECG Data Attestation: I personally reviewed and interpreted this ECG as follows: Indication: weakness Rate (beats per minute): 72 Rhythm: normal sinus Findings: no acute ischemic change and no ectopy Blood Pressure Blood Pressure Findings: Elevated blood pressure Blood Pressure Disposition: further management by hospitalist CHRIST Bustos The patient is a 38 year old M who presents to the Emergency Room with complaints of worsening weakness that started 2 weeks ago. The patient was seen here previously with similar complaints along with myalgias. At that time, he had some studies performed which showed an elevated total CK. He was told to increase his water intake. He has done that. On presentation today, the patient describes increasing weakness in his lower extremities to the point that he fell twice a day and that he has difficulty controlling his hands. For instance, he is unable to write legibly anymore. On today's presentation, the patient has normal muscle strength on my exam of him, however he does have an elevated total CK which was higher than previous testing. He does appear to have difficulty with fine motor control of his hands and significant gait instability. MRI of the brain was unremarkable. MRI of the cervical spine showed multiple bulging disks. The patient has an equivocal Lyme test. This will go for Western blot. [facility] for further management and have him evaluated by neurology. Impression & Plan Rhabdomyolysis, Gait instability Discharge Plan Visit Data *Final* Discharge Date/Time: 01/22/19 06:02 Chief Complaint: Neuro Symptoms/Deficit Stated Complaint: NO FEELING IN FINGERS, FEET, PAIN IN NECK ED Provider: yLnn Najera Discharge Problem: Rhabdomyolysis, Gait instability Patient Disposition: Admitted As Inpatient Discharge Instructions Interventions: ED Discharge Assessment Last Done: 01/22/19 06:02 Discharge Problem: Rhabdomyolysis Qualifiers: Rhabdomyolysis type: non-traumatic Qualified Code(s): M62.82 - Rhabdomyolysis The scribe's documentation has been prepared under my direction and personally reviewed by me in its entirety. I confirm that the note above accurately reflects all work, treatment, procedures, and medical decision making performed by me.
--- NOTE | 2019-01-22 19:07 | Communication Note ---
Date of Service: January 22, 2019 Seen in follow-up from early a.m. admission. Feeling about the same. Not yet likely with the supplements are. Case discussed with neurology. Updated patient on working diagnoses and plans. Muscle weakness and paresthesiasgiven endemic area and positive IgM Lyme, empiric treatment worthwhile. Definitely need to determine what supplements he is on as a toxic reaction certainly could be possible, although I supposed to degree this would be academic given that he notes regardless he is done with the supplements. Still would be good to know in case any specific treatment could be warranted. Otherwise differential fairly broad (see neurology note)PT/OT eval and treat. Follow closely.
[2019-01-23] MEDS: PANTOprazole 40 MG TAB PO SCH (07:42)
[2019-01-23] MEDS: ENOXAPARIN INJ 40 MG/0.4 ML SYR SQ SCH (07:42)
--- NOTE | 2019-01-23 09:34 | Neurology Progress Note ---
Date of Service January 23, 2019 Assessment & Plan (1) Muscle weakness: (2) Paresthesias: (3) Gait instability: (4) Rhabdomyolysis: (5) Lyme disease: Patient has a subacute onset of weakness, fatigue, low back and cervical spine muscular pain, gait disturbance with right hip pain, and numbness and dysesthesias in the hands and feet bilaterally. His CK on admission was elevated at over 1200. He has decreased triceps and quadriceps reflexes and absent Achilles reflexes on exam. Overall, he is significantly better/stronger today than yesterday. His CK has improved to 649. MRI of the brain was unremarkable. 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 There are no upper motor neuron signs in the lower extremities and I do not think the syrinx is clinically active. His Lyme antibody titer was equivocal for IgM Western blot is pending. He has pulled multiple ticks off his body this summer. Overall, this patient likely has weakness, pain, and numbness from acute Lyme disease. Other tick-borne illnesses are possible. Also, He has been on supplements for his weight training over the last month. Unfortunately we do not have the ingredients of these 4 different products, but he claims there is no creatine. These may be contributing to his symptoms as well. There is no other metabolic, infectious, endocrine or inflammatory condition identified so far. Do not believe this fits with acute inflammatory demyelinating polyneuropathy (Guillain-Diagonal syndrome). Additionally, would not have expected him to improve this quickly with an underlying inflammatory/immunologic disease. Recommendations 1. Physical therapy 2. Awaiting Lyme Western blot but continue ceftriaxone empirically, today. After today's dose of ceftriaxone, he could be converted to doxycycline and take this for 2-3 weeks. There is no indication for central nervous system Lyme disease that would require continuing IV ceftriaxone. 3. Follow CKs and awaiting aldolase. 4. Since his back pain is markedly better I see no reason now for MRI of the lumbar spine. I see no reason for a lumbar puncture. 5. Discontinue his weight training supplements. We need to get the bottles in or figure this out from online pictures to see with the ingredients are. 6. Consider EMG and nerve conduction studies as an outpatient next week, if still needed. Overall, I spent a total of 35 minutes with this case including review of records, direct evaluation the patient bedside, and discussion of the case with the patient at bedside and Dr. Beauchamp, including differential diagnosis and treatment options. Subjective Patient feels better compared to yesterday. He is a little stronger and has no pain or numbness. He feels that his strength is perhaps 50% better. He has much less posterior cervical spine and lumbar spine pain any did yesterday as well. He rates his pain now as a 4/10 instead of 10/10. To date he has received only 1 ceftriaxone 2 g infusion. Repeat ESR was 8. B12 947 and repeat CK was 649. Blood pressure is 164/81. Physical Exam Physical Exam: He is awake and alert. Speech is without aphasia or dysarthria. Mood and affect are normal appropriate. Thought processes are intact. Extraocular eye muscles are intact without nystagmus. There is no facial droop. Neck is supple stance sitting up in bed is normal. With outstretched arms there is no drift. There is no resting, postural, or action tremor bilaterally. There is no ataxia with [id number] testing. Strength is 5/5 diffusely in the arms bilaterally both proximally distally. He may have some very slight deltoid weakness right greater than left side but I cannot break his muscles today. Leg strength is 4/5 proximally in the right leg and closer to 5/5 in the left leg. Distally he is 5/5 bilaterally. Results & Data Vital Signs (Past 12 Hours) Vital Signs Temp Pulse Resp BP Pulse Ox 01/23/19 07:10 36.9 C 71 17 164/81 H 91 01/22/19 22:55 36.5 C 71 18 121/79 95 PG Care Time/CCT Total # of Minutes Spent Total Time Spent with Patient: Total time spent is greater than 50% in [facility] (as documented) at patient's floor/unit and/or counseling patient: (1) Rhabdomyolysis Rhabdomyolysis type: non-traumatic Qualified Code(s): M62.82 - Rhabdomyolysis
--- NOTE | 2019-01-23 11:19 | Discharge Summary ---
Date of Service January 23, 2019 Admission HPI Per Admitting Provider Rex Muñoz is a pleasant 38-year-old male with no significant past medical or surgical history presenting with muscle weakness and elevated CK. Patient was seen in the ER on 01/15 similar complaints. Symptoms began around January 08. He is complaining of muscle weakness mostly present in the hips and shoulders. Patient reports having difficulty getting up from a seated position as well as difficulty performing overhead tasks. He also comments on easy fatigability of his proximal muscles. He has paresthesias of his fingers and toes bilaterally which are worsened with walking and prolonged standing. Patient has a difficult time holding a pen to write. He has an unsteady gait, feels as though he cannot fully lift his legs and that his feet drag. This has resulted in 2 falls in the home over the last few days. No head trauma or loss of consciousness. He has some muscle stiffness. He also had some cramping in his bilateral calves and feet last week which has since resolved. He is also complaining of painful touch to the base of his skull and from his yarsanism down his jaw bilaterally. States he gets cramping in his jaw and claudication with chewing. He denies muscle pain, myoclonic jerking or twitching. He denies fevers, chills, sweats, weight loss He denies slurred speech, difficulty swallowing, blurry vision or loss of vision, ptosis, pain with eye movement He has had multiple tick bites in the past. Had confirmed Lyme disease approximately a year and a half ago which was treated with a full course of antibiotics. He had an incident in mid December where he had a superficial wound caused by a haroldo nail. He was seen in the emergency room and administered a tetanus shot. He takes a number of workout supplements - Testone, Growth, Eshred and Latobolic ER course: Normal saline Admission Exam Per Admitting Provider General: patient resting comfortably, NAD, anxious but non-toxic in appearance, AA&O x 4 Skin: warm, dry, intact, no rashes or lesions HEENT: NC/AT, PERRL, EOMI, anicteric sclera, conjunctiva without injection, external ear normal to inspection and nontender, nares patent, moist mucus membranes, dentition intact, no oropharyngeal lesions, neck supple, trachea midline, no LAD, no thyromegaly, no JVD, tenderness with palpation of bilateral temporal region down to jaw Heart: +S1/S2, regular, no m/r/g Lungs: equal air entry bilaterally, no rales/rhonchi/wheezes Abd: +BS, soft, NT/ND, no masses/organomegaly/ascites Ext: warm, 2+ pulses in UE/LE bilaterally, no clubbing/cyanosis or edema Neuro: Patient awake alert and oriented x4, speech fluent/clear and appropriate, cranial nerves II through XII grossly intact, sensation to light touch intact and equal bilaterally, muscle strength 5 out of 5 in bilateral hands/wrists/arms/legs. No pronator drift. [id number] and hijk-ge-hphd intact. Patient with positive Romberg. Ataxic gait possibly with mild foot drop bilaterally, patient unable to walk heel-to-toe due to imbalance. Difficulty writing. Principal Diagnosis Muscle Weakness Discharge Exam General: Alert, oriented. No acute distress Neuro: CN II-XII grossly intact; 5/5 strength in proximal and distal muscles in upper and lower extremities bilaterally. Gait mildly unstable. HEENT: NC/AT, PERRLA, EOMI, oropharynx moist. Chest: Nontender to palpation. CV: RRR, Normal s1, s2. No murmurs appreciated Resp: Breath sounds clear bilaterally, no increased effort of breathing. No crackles/rhonchi/rales. Abdomen: Soft, nontender, nondistended. No guarding. No organomegaly appreciated. Extremities: No edema in lower extremities bilaterally. 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 Admitted on Jan 22, 2019 and discharged on Jan 23, 2019. Muscle weakness/Gait instability/Parathesias -Pt with muscle weakness in proximal shoulder and pelvic girdle; improving on discharge. -Hx of multiple tick bites; previously treated for Lyme -Lyme IgM Ab currently equivocal; bands pending on discharge -LDH and ESR normal, CRP downtrended to normal, ADE and aldolase pending on discharge -Brain MRI unremarkable; MRI cervical spine with tiny syrinx at C7: Per neurology, no upper motor neuron signs so noncontributory to current symptoms. No concern for GBS([place]). -Neurology recommendations while hospitalized: "1. Physical therapy 2. Awaiting Lyme Western blot but continue ceftriaxone empirically, today. After today's dose of ceftriaxone, he could be converted to doxycycline and take this for 2-3 weeks. There is no indication for central nervous system Lyme disease that would require continuing IV ceftriaxone. 3. Follow CKs and awaiting aldolase. 4. Since his back pain is markedly better I see no reason now for MRI of the lumbar spine. I see no reason for a lumbar puncture. 5. Discontinue his weight training supplements. We need to get the bottles in or figure this out from online pictures to see with the ingredients are. 6. Consider EMG and nerve conduction studies as an outpatient next week, if still needed." -Was treated with 2 doses of IV Rocephin; discharged with 14 more days of Doxycycline 100mg BID for treatment of his symptoms. -Advised to discontinue his home supplement use. Pt voiced agreement. -Was NOT seen by physical therapy while hospitalized. -was on fall precautions -Advised to follow-up with Neurology as an outpt only if his symptoms persisted despite treatment. Rhabdomyolysis -CK elevated >1000 on admission; downtrended to >600 on discharge -Received IV fluids -close PCP followup recommended Total Time Total Time Spent Total Time Spent (In Minutes): 60 Discharge Plan Discharge Items Patient Disposition: Home - Self-Care Reason For Visit: GAIT INSTABILITY, ELEVATED CK Discharge Diagnosis: Muscle weakness Discharge Goals: Decrease discomfort and Improve function Activity: Per 'Additional Instructions' section Non-emergency contact: Primary Care Provider and Neurologist Call non-emergency contact if: your symptoms worsen and you have a fever Follow-up/Referrals: Cece Fields PA-C [Primary Care Provider] - Diet: Regular Addtl Provider Instructions: Mr. Muñoz, you were admitted to the hospital because you developed muscle weakness. We believe this is likely related to Lyme disease but could also be related to your use of supplements. We treated you with antibiotics and you seemed to improve. -We are discharging you with a 2 week course of doxycycline for continued treatment of this possible Lyme infection. Please take 2 pills a day for the next 14 days starting tomorrow 12/23/2018. -Doxycycline can cause you to get sunburns when you are out in the sun; please consider using a hat, sunscreen and protective clothing when outside. -We STRONGLY recommend that you discontinue use of your supplements as this could also be contributing to your symptoms. -We advise you follow up with your outpatient Neurology appointment should your symptoms continue while on the antibiotics. We will recommend that to your primary doctor as wll. -We advise that you follow up with your primary care doctor within the next week after discharge. An appointment will be set-up for you at [facility] with either Dr. Hall or one of his colleagues who are available this 12/23/2018, when you should be seen. -You should receive a work excuse on discharge that asks that you be excused from work until further notice for further recovery. It is important that you follow up with your primary care doctor so that they can re-assess your ability to return to work and give the ok to return/ further required documentation to excuse you from work. -Should your symptoms worsen (increased muscle soreness/weakness, increased numbness and tingling, increased falls, confusion, feeling like you have the worst headache of your life, etc), please seek immediate medical care. It was a pleasure taking care of you during your stay here! Prescriptions: New doxycycline hyclate 100 mg capsule 100 mg PO BID 14 Days Qty: 28 RF: 0 Continued Prilosec OTC 20 mg Tablet,Delayed Release (Dr/Ec) 20 mg PO DAILY RF: 0 Stand-Alone Forms: [facility], Work/School Release (Inpt) Discharge Orders: Discharge Order (Routine); Ordered 01/23/19 Ordered By: Bisi Neville Admission Data Admit Date/Time: 01/22/19 05:36 Attending Provider: Epifanio Beauchamp Admit Provider: Nadya Chou Primary Care Provider: Cece Fields Other Providers: José Antonio,NadyaChristian Diop III Service: Medical Other Interventions: Discharge Summary Assessment (RN) Last Done: 01/23/19 12:05 DC Date/Time DO NOT enter until pt leaves facility: 01/23/19 13:32 Supervising Physician Co-Signing Physician Notes I personally examined the patient and verified all haley points of history and exam, discussed case, and agree with decision making with Dr Neville. Discussed with neurology as well, input appreciated. Patient notes that he still feeling weak and shaky, but better than before. He feels safe and stable for home. He notes not having a regular PCP, and therefore we worked on getting regular follow-up set up for him. Extensive discussion on likely etiologies, possible etiologies and next steps of treatment, he expressed good understanding of all of the above. Vitals noted, in general he is awake and alert pleasant no distress. HEENT normocephalic atraumatic mucous members moist. Breathing unlabored no accessory muscle use good effort. Skin shows no rashes no pallor or icterus. Weakness and paresthesiaswith improvement after ceftriaxone, being in an endemic area, and a positive IgM, Lyme appears to be the diagnosis of exclusion. If his Lyme antibodies come back negative, then it seems that the second most possible diagnosis would be a bad reaction to 1 of his supplements. Given that he is improving, more chronic diseases/neurodegenerative diseases seem far less likely. He is stable for home. He has had a dose of IV Rocephin today, he will initiate doxycycline tomorrow (discussed with neurology and we are both in agreement that nothing about this appears to truly be central nervous system Lyme, just most likely late/atypical Lyme), no follow-up in the office. Neurology will anticipate EMG/NCV if he is not continuing to improve, or if he at all worsens. We discussed complete cessation of his supplements, and discussed that most of them have no proven efficacy, and others unfortunately also are part of an unregulated industry that could easily be harmful. Patient expressed good understanding of all of the above, stable for home. Resident Activity Tracking Resident Involvement: Resident Care Provided Care Provided: Adult Hospital Medicine
[2019-01-23] MEDS ORDERED: cefTRIAXone SODIUM 2,000 MG in DEXTROSE 5% 50 ML IV SCH (12:00)
[2019-01-26 20:33] LABS: Aldolase 11.6 U/L (0.0-8.1); Anti Nuclear Antibody Screen POSITIVE (NEGATIVE); Ehrlichia chaff IgG Ab <1:64 (<1:64); Ehrlichia chaff IgM Ab <1:20 (<1:20)
[2019-01-27 12:30] LABS: ANA Pattern SPECKLED
[2019-02-01 03:51] LABS: 18KDIGG Band NONREACTIVE (NONREACTIVE); 23KDIGG Band NONREACTIVE (NONREACTIVE); 23KDIGM Band REACTIVE (NONREACTIVE); 28KDIGG Band NONREACTIVE (NONREACTIVE); 30KDIGG Band NONREACTIVE (NONREACTIVE); 39KDIGG Band NONREACTIVE (NONREACTIVE); 39KDIGM Band NONREACTIVE (NONREACTIVE); 41KDIGG Band REACTIVE (NONREACTIVE); 41KDIGM Band NONREACTIVE (NONREACTIVE); 45KDIGG Band NONREACTIVE (NONREACTIVE); 58KDIGG Band NONREACTIVE (NONREACTIVE); 66KDIGG Band REACTIVE (NONREACTIVE); 93KDIGG Band NONREACTIVE (NONREACTIVE); Lyme Antibodies, WB IgG NEGATIVE (NEGATIVE); Lyme Antibodies, WB IgM NEGATIVE (NEGATIVE)
== END 2019-01-23 13:32 | disposition home or self-care (01) | DRG 868 ==
LOC: ED 23:15 → SUATTDRO 01-22 05:36 → 2W 01-22 05:36

== ENCOUNTER 2019-01-26 13:52 | Inpatient (IN) ==
--- NOTE | 2019-01-26 14:24 | History & Physical Report ---
Date of Service January 26, 2019 Assessment & Plan (1) Muscle weakness: Mr. 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 Lower extremity weakness/gait dysfunction -Pt sent in by PCP with continued LE muscle weakness and progressive gait dysfunction. -Patellar reflexes intact; questionable ankle reflexes, subjective lower extremity weakness, 5/5 power on MSK exam both upper and lower extremities. -Has Hx of multiple tick bites recently, Hx of Lyme disease treated with doxycycline -Last admission, Lyme IgM equivocal, bands still pending at time of writing. -Per [facility] lab, can expect those results within the next day; likely delayed because of long weekend. -Per pt was doing better on IV Rocephin, gives credence to a possible [employer] Lyme with penetration of ceftriaxone across BBB vs. doxycycline -Diff Dx can also be broadened to include transverse myelitis, MS, Myasthenia Gravis, Guillan-[place], etc. -Brain MRI from 01/22: unremarkable -Cervical spine MRI from 01/22: small syrinx noted at C7, and mild degenerative disc disease at c3-c6. -WBC now increased on re-admission (previously normal), CK increased to >1000 once more. Had downtrended on last discharge. -Will get MRI of thoracic and lumbar spine with and w/o contrast -will get a lumbar puncture and associated labs -will test for HIV, put in MS panel -Will place back on Rocephin 2g daily -will place consult to neurology -will place consult to PT/OT -will request q4h neuro checks. -will continue to monitor Maravilla's palsy -Pt with absent left forehead wrinkling, inability to completely close left eye, and inability to move mouth on left side, that right side of mouth appears to be drooping. 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 -will treat with 60mg prednisone and Valtrex 1g x 1week -Valtrex because literature shows HSV as one of the most common causes and the dual pred and Valtrex as treatment for Maravilla's; additional coverage in this case if this pt's Maravilla's palsy not secondary to Lyme. -will continue to monitor Rhabdomyolysis -CK downtrended to >600 on discharge, currently elevated once more to >1000 -Started on IV fluids, NSS @125 -will continue to monitor Hx of GERD -on prilosec OTC at home-nonformulary -pantoprazole 20mg qAM FEN/GI: Regular diet; NSS@125 CODE STATUS: Full DVT Prophylaxis: Lovenox SQ given fall risk, SCDs Dispo: Med/Surg History of Present Illness Primary Care Provider: Cece Fields PA-C Mr. Muñoz states he had improved on discharge in terms of muscle strength but started deteriorating progressively since then. In particular he noted problems with walking, and the inability to close his left eye and right mouth drooping lower than the left. He also complains today of bilateral tenderness and burning in his jaw and along his temples. Otherwise states he is unchanged, with preserved upper body muscle strength. Of note, pt has a Hx of removing multiple ticks off of him in the past few months with Hx of Lyme disease. Has been previously treated with doxycycline before hospitalization and states he has been compliant with the doxycycline he was discharged with. Allergies Allergy/AdvReac Type Severity Reaction Status Date / Time No Known Allergies Allergy Verified 01/21/19 23:55 Home Medications Home Medications Medication Instructions Recorded Confirmed Type Prilosec OTC 20 mg PO DAILY 01/21/19 01/21/19 History doxycycline hyclate 100 mg PO BID 14 Days #28 cap 01/23/19 Rx Past Med/Surg History Medical History Lyme disease (Chronic) GERD (gastroesophageal reflux disease) No significant past surgical history Surgical History S/P wisdom tooth extraction Social History Preferred Language: Maltese Communication Ability: Effective Staff Software Engineer Required: No Beliefs That Will Affect Care: None Current Living Situation: Alone current occupational status: employed 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 Other Information That Helps Us Care for You: No Feels Safe at Home: Yes Smoking Status: Former smoker Tobacco Type: cigarettes ; Number of Years Since Quit: 15 ; Hx Alcohol Use: No Hx Substance Use: No Review of Systems Constitutional: + weakness; no fever and no chills Eyes: no diplopia and no worsening vision Ear, Nose, Mouth, Throat: + TMJ pain (bilateral tenderness along jaw line and up to temporal area); no sore throat Respiratory: no cough and no dyspnea Cardiovascular: no chest pain, no dyspnea, no palpitations and no lightheadedness Gastrointestinal: no nausea and no vomiting Musculoskeletal: + muscle weakness (in lower extremities bilaterally) Integumentary: no rash Neurologic: + gait abnormality, + generalized weakness, + loss of sensation, + tingling, + numbness and + paresthesia; no headache(s) and no confusion Physical Exam Physical Exam: General: Alert, oriented. No acute distress Neuro: CNII-XII grossly intact EXCEPT for CN VII. Unable to wrinkle forehead on left, unable to close eye on left completely with some RIGHT mouth droop. HEENT: NC/AT, PERRLA, EOMI, oropharynx moist. Chest: Nontender to palpation. CV: RRR, Normal s1, s2. No murmurs appreciated Resp: Breath sounds clear bilaterally, no increased effort of breathing. No crackles/rhonchi/rales. Abdomen: Soft, nontender, nondistended. No guarding. No organomegaly appreciated. Extremities: No edema in lower extremities bilaterally. MSK: 5/5 strength in LE and UE bilaterally. Results & Data Vital Signs (Past 12 Hours) Vital Signs Temp Pulse Resp BP Pulse Ox 01/26/19 14:40 36.8 C 89 16 147/103 H 96 01/26/19 14:33 36.8 C 88 20 147/103 H 96 Intake and Output 01/26/19 01/26/19 01/26/19 06:59 14:59 22:59 Other: Weight 109.8 kg Patient Weight 01/27/19 06:59 Weight 109.8 kg Laboratory Results Laboratory Results - last 24 hr 01/26/19 01/26/19 15:38 15:38 WBC 12.09 H RBC 5.27 Hgb 15.6 Hct 44.2 MCV 83.9 MCH 29.6 MCHC 35.3 RDW Std Deviation 37.0 RDW Coeff of Ricardo 12.2 Plt Count 270 MPV 10.0 Immature Gran % (Auto) 0.2 Neut % (Auto) 65.3 Lymph % (Auto) 24.4 Bowman % (Auto) 7.5 Eos % (Auto) 2.2 Baso % (Auto) 0.4 Immature Gran # (Auto) 0.02 Neut # (Auto) 7.90 H Lymph # (Auto) 2.95 Bowman # (Auto) 0.91 H Eos # (Auto) 0.26 Baso # (Auto) 0.05 Sodium 137 Potassium 3.9 Chloride 105 Carbon Dioxide 26 Anion Gap 6.0 BUN 18 Creatinine 1.17 Est Cr Clr Drug Dosing 99.2 Est GFR ( Amer) 89.8 Est GFR (Non-Af Amer) 77.5 BUN/Creatinine Ratio 15.8 Glucose 103 H Calcium 8.9 Total Bilirubin 0.4 AST 47 H ALT 89 H Alkaline Phosphatase 78 Total Creatine Kinase 1045 H C-Reactive Protein < 0.29 Total Protein 7.9 Albumin 3.9 Globulin 4.0 Albumin/Globulin Ratio 1.0 Medications Administered Home Medications Prilosec OTC 20 mg PO DAILY 01/21/19 [History Confirmed 01/21/19] doxycycline hyclate 100 mg PO BID 14 Days #28 cap 01/23/19 [Rx] Active Medications Ceftriaxone Sodium 2,000 mg/ (Dextrose) 70 mls @ 100 mls/hr IV DAILY@1500 RACHEAL; Protocol Stop: 02/05/19 14:59 Last Admin: 01/26/19 16:28 Dose: 100 mls/hr Documented by: Prednisone (Prednisone) 60 mg PO DAILY [facility] Stop: 02/02/19 15:59 Valacyclovir HCl (Valtrex) 1,000 mg PO TID [facility] Stop: 02/02/19 20:59 Supervising Physician Co-Signing Physician Notes I personally examined the patient and verified all haley points of history and exam, discussed case, and agree with decision making with Dr Neville. Discussed with Dr. Plunkett and Dr. Hall who saw the patient in the office today. He was feeling worse again. They attempted to get him set up for EMG/NCV urgently, but this was unable to be arranged. Certainly with progression of his weakness again and gait instability again, they felt it prudent to admit him, which I agree. Patient himself notes that he does not feel worse than he did at the beginning of all of this, but more back to how he was feeling whenever he was first in the hospital late last week. He notes that he had felt better after the Rocephin, but then worse again when he was on the doxycycline. He has no progression of numbness up his legs further than he did before. He does have a left facial droop that is new, and his jaw joints hurt tremendously. Vitals noted, in general he is awake and alert pleasant no distress. HEENT normocephalic atraumatic mucous members are moist. Breathing is unlabored no accessory muscle use he has no conversational dyspnea. Neurologically he actually is surprisingly strong with proximal muscles, his hand muscles are somewhat distally week, but with hip and shoulder flexors he is 5 out of 5 plus. Left facial droop consistent with Maravilla's palsy, including Maravilla's phenomenon when he closes his eyes and including the fact that his forehead does not wrinkle on the left side. His TMJ are quite tender bilaterally, although I cannot clearly appreciate an effusion. Paresthesias/weakness -Still leading differential of progressed Lyme versus (the failure of the doxycycline) central nervous system Lyme behaving somewhat atypically -Wide differential otherwise -Work-up as above Revisited after MRIs and LPdiscussed findings. With high CSF protein on LP, concern is higher that he may have an inflammatory condition that would require IVIG or plasmapheresis. Discussed that we do not have plasmapheresis here. Discussed this still could be Lyme related, and that the high CSF protein may be eventually indicative of [employer] Lyme. We discussed expectant management with current treatment versus transfer to where plasmapheresis is available. Right now he would prefer to stay here, understanding the risk and benefit balance. His rationale is that he responded so nicely to the ceftriaxone before that he is hopeful that that will get him back on track. He also notes that because the symptoms have progressed so slowly he does not seem to feel that he is in imminent danger. I agree with his assessment of the situation, and do believe that current management with a low threshold to transfer for plasmapheresis if needed, is a reasonable plan. Otherwise as above PG Care Time/CCT Total # of Minutes Spent Total Time Spent with Patient: Total time spent is greater than 50% in coordination of care (as documented) at patient's floor/unit and/or counseling patient: Resident Activity Tracking Resident Involvement: Resident Care Provided Care Provided: Adult [facility] Medicine
[2019-01-26] MEDS ORDERED: cefTRIAXone SODIUM 2,000 MG in DEXTROSE 5% 50 ML IV SCH (15:00)
[2019-01-26 16:03] LABS: Basophils # (auto) 0.05 K/uL (0-0.2); Basophils % (auto) 0.4 %; Eosinophils # (auto) 0.26 K/uL (0-0.5); Eosinophils % (auto) 2.2 %; Hematocrit (blood only) 44.2 % (42-52); Hemoglobin 15.6 g/dL (14.0-18.0); Immature Granulocytes # (auto) 0.02 K/uL (0.00-0.02); Immature Granulocytes % (auto) 0.2 %; Lymphocytes # (auto) 2.95 K/uL (1.2-3.4); Lymphocytes % (auto) 24.4 %; Mean Corpuscular Hemoglobin 29.6 pg (25-34); Mean Corpuscular Hgb Conc 35.3 g/dL (32-36); Mean Corpuscular Volume 83.9 fL (80-100); Monocytes # (auto) 0.91 K/uL (0.11-0.59); Monocytes % (auto) 7.5 %; Neutrophils % (auto) 65.3 %; Platelet Count 270 K/uL (130-400); RDW Coefficient of Variation 12.2 % (11.5-14.5); Red Blood Count 5.27 M/uL (4.7-6.1); White Blood Count 12.09 K/uL (4.8-10.8)
[2019-01-26 16:29] LABS: Alanine Aminotransferase 89 U/L (12-78); Albumin Level 3.9 gm/dl (3.4-5.0); Aspartate Aminotransferase 47 U/L (15-37); BUN Creatinine Ratio 15.8 (10-20); Blood Urea Nitrogen 18 mg/dl (7-18); Calcium 8.9 mg/dl (8.5-10.1); Carbon Dioxide 26 mmol/L (21-32); Chloride 105 mmol/L (98-107); Creatinine Clr Calc Pharmacy 99.2 ml/min; Est GFR (African American) 89.8; Est GFR (Non-African American) 77.5; Glucose 103 mg/dl (70-99); Potassium 3.9 mmol/L (3.5-5.1); Sodium 137 mmol/L (136-145)
[2019-01-26 16:45] LABS: Alkaline Phosphatase 78 U/L (45-117); Bilirubin,Total 0.4 mg/dl (0.2-1); C Reactive Protein < 0.29 mg/dl (0-0.29); Creatine Kinase 1045 U/L (39-308); Total Protein 7.9 gm/dl (6.4-8.2)
[2019-01-26 18:22] LABS: Appearance CSF Clear; CSF Count Tube # 3; CSF Xanthrochromic No xanthochromia; Color CSF Colorless; Red Blood Cell CSF (A) 88 /uL (0-); Total Protein CSF 71.5 mg/dl (15-45); White Blood Cell CSF (A) 0 /uL (0-5)
[2019-01-26] MEDS ORDERED: GADOBUTROL 65ML VIAL IV PRN (18:52)
--- NOTE | 2019-01-26 19:06 | Fluoroscopy Report ---
FL lumbar puncture diagnostic CLINICAL HISTORY: 38 years-old Male presenting with progressive weakness, facial palsy. COMPARISON: 01/22/2019. PROCEDURE: The procedure, risks and benefits were discussed with the patient including the risk of spinal headac he, bleeding and infection. The patient agreed to the procedure and informed written consent was obta ined. The procedure was performed by Dr. Boston following a timeout. The L3-4 interspinous space was targeted. Skin overlying the space was prepped and draped in the usua l aseptic fashion and local anesthesia was achieved with 1% lidocaine. Under intermittent fluoroscopi c guidance, a 20-gauge x 3 1/2 in. Sprotte needle was inserted into the thecal sac. Opening pressure was obtained in prone positioning, which measured 14 cmH2O. A total of 7 mL of clear , colorless cerebral spinal fluid was obtained and spread amongst 4 vials. The patient tolerated the procedure well. There were no immediate complications. The specimens were s ent to the laboratory at the request of the referring physician. Reference range: Normal opening pressure 6-25 cmH2O (95% reference interval for lateral decubitus positioning). Fluoroscopy dosage (mGy): Not available. Fluoroscopy time: 0.4 minutes. Number or time of high level fluoroscopy (HLF), digital spot, or digital subtraction images: 0. IMPRESSION: 1. Successful fluoroscopic guided lumbar puncture with removal of 7 mL of clear, colorless cerebral spinal fluid. No immediate complications. 2. Normal opening pressure. Electronically signed by: Joe Boston M.D. 01/26/2019 7:04 PM
--- NOTE | 2019-01-26 19:11 | Magnetic Resonance Report ---
MR thoracic spine wo/w con CLINICAL HISTORY: Progressive lower extremity weakness. Possible transverse myelitis. COMPARISON STUDY: No previous studies for comparison. FINDINGS: Imaging was performed in the sagittal and axial planes, before and after the administration of 11 cc of intravenous Gadavist. There are no suspicious areas of marrow replacement. There is a tiny incidental T8 vertebral body hem angioma. No demyelinating foci are visualized within the thoracic cord. There is minimal dilatation of the jaycob tral canal at the T5 level. There is a tiny disc protrusion at the T8-9 level. There is no significant spinal stenosis. No pathologically enhancing lesions are visualized. IMPRESSION: 1. Tiny central disc protrusion at the T8-9 level. No spinal stenosis. 2. No cord mass is identified. No foci of demyelination identified 3. Minimal dilatation of the central canal at the T5 level, a finding of doubtful acute clinical sign ificance. Electronically signed by: Jarad Dorsey M.D. 01/26/2019 7:09 PM
[2019-01-26] MEDS: predniSONE 20 MG TAB PO SCH (19:24)
--- NOTE | 2019-01-26 19:25 | Magnetic Resonance Report ---
MR lumbar spine wo/w con CLINICAL HISTORY: Progressive lower extremity weakness and paresthesias. Evaluate for transverse myel itis. TECHNIQUE: Sagittal and axial T1, T2 and STIR images were obtained. Images were acquired before and a fter the administration of 11 cc of intravenous Gadavist COMPARISON STUDY: No previous studies for comparison. OBSERVATIONS: The vertebral bodies and posterior elements appear intact. There is no abnormal bony signal present t o suggest a marrow replacement process. L1-2: No disc protrusions or extrusions. No evidence of spinal canal or neural foraminal compromise. L2-3: No disc protrusions or extrusions. No evidence of spinal canal or neural foraminal compromise. L3-4: There is early disc desiccation. There is a minimal circumferential disc bulge. There is no sig nificant spinal or foraminal stenosis L4-5: No disc protrusions or extrusions. No evidence of spinal canal or neural foraminal compromise. L5-S1: No disc protrusions or extrusions. No evidence of spinal canal or neural foraminal compromise. The conus medullaris and cauda equina appear normal. Postcontrast images reveal no evidence for pathologic enhancement There is mild edema within the posterior subcutaneous fat at the L3 level, finding which is felt to b e secondary to the patient's recent lumbar puncture IMPRESSION: Essentially normal MRI of the lumbar spine. Electronically signed by: Jarad Dorsey M.D. 01/26/2019 7:22 PM
[2019-01-26] MEDS: SODIUM CHLORIDE 0.9% 1000ML 1,000 ML IV SCH (19:59)
[2019-01-26 20:49] LABS: Partial Thromboplastin Ratio 0.9; Partial Thromboplastin Time 23.7 Seconds (21.0-31.0); Prothrombin Time 10.3 Seconds (9.0-12.0)
[2019-01-26] MEDS: VALACYCLOVIR HCL 500 MG TABLET PO SCH (21:23)
[2019-01-26] MEDS: ENOXAPARIN INJ 40 MG/0.4 ML SYR SQ SCH (21:27)
[2019-01-27] MEDS: SODIUM CHLORIDE 0.9% 1000ML 1,000 ML IV SCH ×3 (03:57→17:40)
[2019-01-27 06:17] LABS: Basophils # (auto) 0.02 K/uL (0-0.2); Basophils % (auto) 0.2 %; Hematocrit (blood only) 40.9 % (42-52); Hemoglobin 14.3 g/dL (14.0-18.0); Immature Granulocytes # (auto) 0.04 K/uL (0.00-0.02); Immature Granulocytes % (auto) 0.3 %; Lymphocytes # (auto) 2.09 K/uL (1.2-3.4); Lymphocytes % (auto) 17.3 %; Mean Corpuscular Hemoglobin 29.9 pg (25-34); Mean Corpuscular Volume 85.6 fL (80-100); Monocytes # (auto) 0.78 K/uL (0.11-0.59); Monocytes % (auto) 6.4 %; Neutrophils # (auto) 9.18 K/uL (1.4-6.5); Neutrophils % (auto) 75.8 %; Platelet Count 247 K/uL (130-400); RDW Coefficient of Variation 12.1 % (11.5-14.5); RDW Standard Deviation 37.6 fL (36.4-46.3); Red Blood Count 4.78 M/uL (4.7-6.1); White Blood Count 12.11 K/uL (4.8-10.8)
[2019-01-27 06:51] LABS: Albumin Level 3.4 gm/dl (3.4-5.0); BUN Creatinine Ratio 16.2 (10-20); Calcium 8.6 mg/dl (8.5-10.1); Est GFR (African American) 79.8; Est GFR (Non-African American) 68.9
[2019-01-27 06:54] LABS: Albumin Globulin Ratio 0.9 (0.9-2); Bilirubin,Total 0.4 mg/dl (0.2-1); Globulin 3.6 gm/dl (2.5-4.0)
--- NOTE | 2019-01-27 07:02 | Family Medicine Progress Note ---
Date of Service January 27, 2019 Assessment & Plan (1) Muscle weakness: Mr. 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 Lower extremity weakness/gait dysfunction -Pt sent in by PCP with continued LE muscle weakness and progressive gait dysfunction. -Has Hx of multiple tick bites recently, last admission, Lyme IgM equivocal, bands still pending. Treated with doxycycline -differential diagnosis: CLOTH HANDLER Lyme (given prior improvement with ceftriaxone, that worsened when patient was transitioned to p.o. 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 -> commence 0.4g/kg IVIG x5 days -> consider transfer to tertiary care center if symptoms worsen as patient may require plasmapheresis Maravilla's palsy -Improving from admission -ddx: secondary to GBS, Lyme disease, or potentially HSV -will treat with 60mg prednisone and Valtrex 1g x 1week -> if Lyme bands come back positive, likely safe to discontinue prednisone and valtrex and monitor -> monitor BMP whilst on valtrex and IVIG given both can potentially be nephrotoxic -Valtrex because literature shows HSV as one of the most common causes and the dual pred and Valtrex as treatment for Maravilla's; additional coverage in this case if this pt's Maravilla's palsy not secondary to Lyme. Rhabdomyolysis -CK downtrended to >600 on prior discharge, elevated once again on admission >1000 -continue to monitor -> currently down to 700 -continue IV fluids, NSS @125 Hx of GERD -on prilosec OTC at [id number] -pantoprazole 20mg qAM FEN/GI: Regular diet; NSS@125 CODE STATUS: Full DVT Prophylaxis: Lovenox SQ given fall risk, SCDs Dispo: Remains on Med/Surg Supervising Physician Co-Signing Physician Notes I personally examined the patient and verified all haley points of history and exam, discussed case, and agree with decision making with Dr Neville. He notes he is feeling better. Was actually out of bed sitting in a chair drawing whenever I saw him. He notes that his weakness is feeling better and is feeling better overall. Case discussed with neurology, input greatly appreciated. Vitals noted, in general he is awake and alert pleasant no distress. HEENT normocephalic atraumatic mucous members are moist. Breathing is unlabored no accessory muscle use he has no conversational dyspnea. No new neurologic deficits. Exam otherwise as above. Paresthesias/weakness -Main differential is CLOTH HANDLER/atypical Lyme versus Guillan Dutta -Continue ceftriaxone and IVIG for now, is improving -Understands that if there is any solid and improvement or worsening, we may need to consider transfer to a facility that is able to perform plasmapheresis -Continue current care -PT/OT eval and treat -He seems pleased with his progress Subjective Mr. Muñoz reports he is feeling slightly better today. He states that he is starting to regain feeling in his face, and cannot feel his tongue in his mouth. He feels like the Maravilla's palsy is improving. He does remain with subjective weakness, and paresthesias bilaterally in his feet. He reports that his TMJ marissa n is improving, and that he was able to eat breakfast this morning without any difficulty. He denies any fever or chills. Review of Systems Constitutional: + weakness; no fever and no chills Ear, Nose, Mouth, Throat: + TMJ pain (bilateral tenderness along jaw line and up to temporal area); no sore throat Cardiovascular: no chest pain, no palpitations, no lightheadedness, no edema and no calf pain Gastrointestinal: no abdominal pain, no nausea and no vomiting Musculoskeletal: + muscle weakness (in lower extremities bilaterally) Integumentary: no rash Physical Exam Constitutional: WD/WN, vitals as above Eyes: PERRL, conjunctivae normal, anicteric sclerae Respiratory: normal respiratory effort, lungs clear to auscultation Cardiovascular: RRR, no murmur, no edema Gastrointestinal (Abdomen): normal bowel sounds, soft, nontender, no hepatosplenomegaly Skin: Numerous tattoos noted over bilateral upper and lower extremities Neurologic: Evidence of left-sided Maravilla's palsy, most notably with left-sided facial droop when asking the patient to smile. Forehead spared. 5 out of 5 power in upper and lower extremities. Sensation intact bilaterally, however patient reports that the sensation in his fingertips feels different than it should Results & Data Vital Signs (Past 12 Hours) Vital Signs Temp Pulse Resp BP Pulse Ox 01/26/19 23:21 36.9 C 88 19 122/80 95 PG Care Time/CCT Total # of Minutes Spent Total Time Spent with Patient: Total time spent is greater than 50% in coordination of care (as documented) at patient's floor/unit and/or counseling patient: Resident Activity Tracking Resident Involvement: Resident Care Provided Care Provided: Adult Hospital Medicine
[2019-01-27] MEDS: PANTOprazole 40 MG TAB PO SCH (08:05)
[2019-01-27] MEDS: predniSONE 20 MG TAB PO SCH (08:05)
[2019-01-27] MEDS: cefTRIAXone SODIUM 2,000 MG in DEXTROSE 5% 50 ML IV SCH ×2 (08:05→20:14)
[2019-01-27] MEDS: VALACYCLOVIR HCL 500 MG TABLET PO SCH ×3 (08:05→20:14)
--- NOTE | 2019-01-27 09:45 | Neurology Consultation ---
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 He presents with subacute neck and low back pain, paresthesias of the limbs, and progressive, persistent weakness with associated gait dysfunction/ataxia and significant difficulty arising from a seated position. He has notable hyporeflexia including absent Achilles tendon reflexes. He has a significant albuminocytologic dissociation on his recently completed lumbar puncture. Of note, he developed a mild to moderate left Maravilla's palsy 2 days ago. Cranial neuropathy may occur as a feature of GBS including the Salmon Lockhart variant (although the Salmon Lockhart variant is more classically associated with ophthalmoplegia). On the other hand, his left Maravilla's may not be related to the suspected diagnosis of GBS. Of course, Lyme disease is also included in this patient's differential diagnosis. He does have an equivocal positive IgM antibody. Up to 50% of Lyme cases may present with bilateral Maravilla's palsy (although this patient has unilateral Maravilla's). It is also notable that this patient does not have a history of recent tick bite, erythema migrans, conduction block on his EKG, or significant increase in his baseline joint pain which may make Lyme less likely. Case discussed with Dr. Beauchamp, attending hospitalist. I would recommend continuing with IV Rocephin for treatment for possible Lyme disease. However, I would also recommend starting treatment with IVIG for Guillain-Dutta syndrome. Guidelines recommend 0.4 g/kg daily for 5 days, slow infusion per protocol. Would also suggest checking an anti-GQ 1B antibody which is often times associated with the Salmon Lockhart variant of Guillain-Dutta syndrome. If this patient's weakness progresses further or if his clinical status deteriorates I would recommend transfer to a tertiary center for further evaluation and management and consideration of plasmapheresis. History of Present Illness Reason for Consultation: generalized weakness, gait dysfunction, Maravilla's Palsy Requesting Physician: Bisi Neville MD Attending Physician: Epifanio Beauchamp DO History of Present Illness The patient is a 38-year-old male with a chief complaint of generalized weakness. He indicates that his symptoms actually began about 2 to 3 weeks ago and included significant, persistent, neck and low back pain with associated paresthesias to the fingertips and legs. The symptoms persisted for several days and were eventually accompanied by a feeling of generalized weakness which the patient describes as difficulty getting in and out of his pickup truck as well as out of chairs and up and down steps. The weakness persisted and progressed to the point that he was unable to hold a milk jug in his hands or perform overhead tasks very well. The patient is generally a well muscled individual and works out with weights periodically. He does not report any significant increase intensity in his workout regimen. He denies any recent antecedent illness prior to symptom onset 2 to 3 weeks ago such as URI symptoms or nonspecific gastrointestinal illness. He does complain of chronic joint aches and pains but relates this to age and activity. He denies any recent rashes or recent tick bite although he does relate a history of Lyme disease that was clinically diagnosed about 2 years ago and treated with doxycycline. He was admitted to [facility] about 1 week ago for the above symptoms and underwent some testing including MRI of the brain and cervical spine as well as Lyme screening. His neuroimaging was fairly unremarkable revealing only minimal cervical disc degeneration and an incidental small syrinx. No evidence of demyelinating disease or stroke. He has had a mildly elevated CK, in the thousands which improved with IV fluids. He had an equivocal positive Lyme IgM antibody and was treated for possible Lyme disease with Rocephin and was discharged with a prescription for doxycycline. The patient had presented to his primary care provider for a hospital follow-up and was complaining of persistent progressive generalized weakness as well as some left facial weakness, upper and lower face which seem to be new, starting this past Wednesday. He was directly readmitted to the hospital for further evaluation and management of possible Lyme versus GBS. He underwent additional testing including MRI of the thoracic and lumbar spine and lumbar puncture. His additional spinal imaging was fairly unremarkable. His CSF analysis revealed a significant albuminocytologic dissociation. He has been restarted on ceftriaxo ne during this readmission and is also currently receiving prednisone and valacyclovir. Additional details as below. Allergies Allergy/AdvReac Type Severity Reaction Status Date / Time No Known Allergies Allergy Verified 01/21/19 23:55 Home Medications Home Medications Medication Instructions Recorded Confirmed Type Prilosec OTC 20 mg PO DAILY 01/21/19 01/21/19 History doxycycline hyclate 100 mg PO BID 14 Days #28 cap 01/23/19 Rx Patient History Medical History Lyme disease (Chronic) GERD (gastroesophageal reflux disease) No significant past surgical history Surgical History S/P wisdom tooth extraction Family History Mother Heart disease Father Stomach cancer Social History Preferred Language: Ecuadorean Communication Ability: Effective Associate Engineer Required: No Beliefs That Will Affect Care: None Current Living Situation: Alone current occupational status: employed 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 Other Information That Helps Us Care for You: No Feels Safe at Home: Yes Smoking Status: Former smoker Tobacco Type: cigarettes ; Number of Years Since Quit: 15 ; Hx Alcohol Use: No Hx Substance Use: No Review of Systems Constitutional: + fatigue and + weakness; no fever, no chills and no weight loss Eyes: no blind spots and no diplopia Ear, Nose, Mouth, Throat: no tinnitus and no hearing loss Respiratory: no cough and no dyspnea Cardiovascular: no chest pain and no palpitations Gastrointestinal: no nausea and no vomiting Genitourinary: no dysuria and no urinary incontinence Musculoskeletal: as per Subjective / HPI, + back pain, + neck pain and + joint pain; no myalgia Integumentary: no rash, no lesions and no new lesions Neurologic: as per Subjective / HPI, + gait abnormality, + unsteadiness, + falls, + generalized weakness, + paresthesia and + headache(s); no confusion Psychiatric: no depression and no anxiety Hematologic / Lymphatic: no easy bleeding and no easy bruising Physical Exam Physical Exam: The patient is a well-developed, well-nourished adult male. He is alert and fully oriented. Recent and remote memory intact. He is attentive with normal concentration. Patient exhibits a normal spontaneous speech pattern as well as an age-appropriate fund of knowledge. Visual mcadams full to confrontation. Visual acuity normal. Pupils equal round reactive to light and accommodation. Eye movements normal. There is no ptosis or nystagmus. There is no ophthalmoplegia. Facial sensation intact. There is weakness of the left upper and lower facial musculature with slight weakness of eyelid closure on the left as well. Hearing intact bilaterally. Palate elevates to midline. Shoulder shrug intact. Tongue protrudes to midline. Sensory examination reveals a mild deficit to vibration in all 4 limbs and is otherwise intact. Deep tendon reflexes are diffusely diminished and notably absent at the Achilles tendons bilaterally. Plantar responses silent bilaterally. There is no dysdiadochokinesia or dysmetria [id number] or [id number] bilaterally. Ophthalmoscopic examination reveals normal-appearing optic disks and posterior segments. No papilledema or hemorrhages. Carotid pulses normal bilaterally, no bruits to auscultation. Patient exhibits modest difficulty standing up out of his bed and requires use of his hands for support. Gait is unsteady, ataxic appearing. patient exhibits mild diffuse weakness for the arms and legs (proximal and distal) and moderate weakness for grain broker strength bilaterally. He has mild weakness of ankle dorsiflexion and plantarflexion bilaterally as well. No atrophy. Muscle tone normal throughout. No abnormal movements observed. Results & Data Vital Signs (Past 12 Hours) Vital Signs Temp Pulse Resp BP Pulse Ox 01/27/19 07:05 36.8 C 81 18 116/64 95 01/26/19 23:21 36.9 C 88 19 122/80 95 Laboratory Results WBC 12.11, hemoglobin 14.3, hematocrit 40.9, platelet count 247, ESR 10, sodium 140, potassium 4.0, BUN 21, creatinine 1.29, glucose 139, calcium 8.6, AST 30, ALT 68, total CK 700, CRP less than 0.29, aldolase 11.6, ADE screen positive, Lyme antibody screen equivocal positive for IgM CSF clear, colorless, no xanthochromia, CSF WBC 0, RBC 88, CSF total protein 71.5 Diagnostic Findings MRI of the brain January 22, 2019 unremarkable. No parenchymal disease. I reviewed the images as well as the radiologist interpretation of this test. MRI of the cervical spine completed January 22, 2019 reveals mild degenerative disc disease from C3-C6 without associated significant spinal stenosis. There is a tiny incidental syrinx at the C7 level. I reviewed the images as well as the radiologist interpretation of this test. MRI of the thoracic spine completed January 26, 2019 reveals a tiny incidental disc protrusion at the T8-9 level and is otherwise unremarkable. I reviewed the images as well as the radiologist interpretation of this test. MRI of the lumbar spine completed January 26, 2019 unremarkable. Images and report reviewed. Lumbar puncture revealed a normal opening pressure and is otherwise as described above. Patient's electrocardiogram reveals a normal sinus rhythm, 79 bpm.
[2019-01-27] MEDS ORDERED: IMMUNE GLOBULIN (HUMAN) SOLN IV SCH (10:15)
[2019-01-27] MEDS: IMMUNE GLOBULIN (HUMAN) 200 ML IV SCH ×2 (13:29→15:47)
[2019-01-27] MEDS: ENOXAPARIN INJ 40 MG/0.4 ML SYR SQ SCH (20:14)
[2019-01-28] MEDS: SODIUM CHLORIDE 0.9% 1000ML 1,000 ML IV SCH ×2 (02:10→09:31)
[2019-01-28 06:06] LABS: Basophils # (auto) 0.05 K/uL (0-0.2); Basophils % (auto) 0.6 %; Eosinophils # (auto) 0.18 K/uL (0-0.5); Hemoglobin 13.2 g/dL (14.0-18.0); Immature Granulocytes # (auto) 0.03 K/uL (0.00-0.02); Immature Granulocytes % (auto) 0.3 %; Lymphocytes # (auto) 2.15 K/uL (1.2-3.4); Lymphocytes % (auto) 24.2 %; Mean Corpuscular Hemoglobin 29.8 pg (25-34); Mean Corpuscular Hgb Conc 34.7 g/dL (32-36); Mean Corpuscular Volume 85.8 fL (80-100); Mean Platelet Volume 9.6 fL (7.4-10.4); Monocytes # (auto) 0.91 K/uL (0.11-0.59); Monocytes % (auto) 10.3 %; Neutrophils # (auto) 5.55 K/uL (1.4-6.5); Neutrophils % (auto) 62.6 %; Platelet Count 197 K/uL (130-400); RDW Coefficient of Variation 12.3 % (11.5-14.5); RDW Standard Deviation 38.3 fL (36.4-46.3); Red Blood Count 4.43 M/uL (4.7-6.1); White Blood Count 8.87 K/uL (4.8-10.8)
[2019-01-28 06:39] LABS: Calcium 7.6 mg/dl (8.5-10.1); Creatinine Clr Calc Pharmacy 95.9 ml/min; Est GFR (African American) 86.3; Est GFR (Non-African American) 74.4; Potassium 3.8 mmol/L (3.5-5.1)
[2019-01-28 06:41] LABS: Albumin Globulin Ratio 0.7 (0.9-2); Bilirubin,Total 0.4 mg/dl (0.2-1); Globulin 4.1 gm/dl (2.5-4.0); Total Protein 7.1 gm/dl (6.4-8.2)
[2019-01-28] MEDS: cefTRIAXone SODIUM 2,000 MG in DEXTROSE 5% 50 ML IV SCH ×2 (08:16→20:05)
[2019-01-28] MEDS: predniSONE 20 MG TAB PO SCH (08:17)
[2019-01-28] MEDS: PANTOprazole 40 MG TAB PO SCH (08:17)
[2019-01-28] MEDS: VALACYCLOVIR HCL 500 MG TABLET PO SCH ×3 (08:17→20:37)
[2019-01-28] MEDS ORDERED: ACETAMINOPHEN 325 MG TAB PO ONE (08:45)
[2019-01-28] MEDS: IMMUNE GLOBULIN (HUMAN) 200 ML IV SCH ×2 (09:32→11:11)
--- NOTE | 2019-01-28 13:13 | Neurology Progress Note ---
Date of Service January 28, 2019 Assessment & Plan (1) Muscle weakness: (2) Gait instability: (3) Rhabdomyolysis: (4) Lyme disease: (5) GBS (Guillain [place] syndrome): This patient has had a subacute course of weakness. I saw him on January 22 and he did not have a specific weakness pattern but it seemed more proximal than distal. He had reflexes at that time as well. There was a Lyme IgM screen which was positive but the Western blot is not back yet. He was put on IV Rocephin and after 1 2 g dose he felt markedly better the next day. He was discharged but then became worse over time it was Re admitted 2 days ago. Today, the patient has some proximal weakness and absent ankle reflexes. This pattern (and the response he had to Rocephin earlier this month) is not consistent with Guillain-[place] syndrome. Nevertheless, I cannot entirely exclude a variant of Guillain-Dutta syndrome or other inflammatory condition. He has mildly elevated CSF protein of 71 with no cells. He was on antibiotics which could mask cells. A viral process would not be masked by an antibiotic and I am not convinced he has a viral condition at this time. It is still possible that he has Lyme disease that responded better to IV Rocephin than the oral doxycycline. A serum Western blot and now CSF Lyme antibody titers are all pending. On admission this time it was felt that he may have a left Maravilla's palsy but I did not appreciate this today. The patient was given IVIG and continues on IV Rocephin. He is improved clinically today compared to admission. Recommendations: 1. Continue the 5 day IVIG course as per protocol. 2. Continue the IV Rocephin course as well and we are awaiting the Lyme Western blot results. 3. Physical therapy and increase activity as able. Overall, I spent a total of 35 minutes with this case including review of records, direct evaluation the patient bedside, discussing the case with the patient at bedside, his RN, and Dr. Winslow, including differential diagnosis and treatment options. Subjective Patient feels better today with no pain or headache. He is able to ambulate better and has less weakness. He is not dizzy. LP 9 5 showed a total protein of 71.5 and 0 white cells. He had been on oral antibiotics at the time of the LP. Special protein studies and Lyme antibody titers are pending. Lyme Western blot from January 22 is pending. MRI of the thoracic spine and lumbar spine showed no significant findings. Nursing reports no new events. Physical Exam Physical Exam: He is awake and alert. He is quiet as before and seems to have a mildly flat affect. He is pleasant cooperative otherwise. Speech is without aphasia or dysarthria. He has a slight droop at the corner of the mouth on the right. He can move his face bilaterally however. With outstretched arms there is no drift. He has no ataxia with [id number] testing and no tremor. Strength is 4/5 in the right deltoid and 5/5 in the left. The triceps are 4/5 bilaterally as well. Biceps, wrist flexor and extensors, and intrinsic hand muscles are closer to 5/5. Leg strength is 5/5 distally and 4/5 proximally. E xtraocular eye muscles are intact without nystagmus. Tongue is midline. Reflexes are 2/4 in the brachioradialis and biceps tendons bilaterally. Triceps and quadriceps tendons are 1/4 bilaterally. Achilles reflexes are absent bilaterally. He has no sensory deficits. Results & Data Vital Signs (Past 12 Hours) Vital Signs Temp Pulse Resp BP Pulse Ox 01/28/19 07:19 36.7 C 76 18 168/93 H 94 PG Care Time/CCT Total # of Minutes Spent Total Time Spent with Patient: Total time spent is greater than 50% in coordination of care (as documented) at patient's floor/unit and/or counseling patient: (1) Rhabdomyolysis Rhabdomyolysis type: non-traumatic Qualified Code(s): M62.82 - Rhabdomyolysis
--- NOTE | 2019-01-28 15:54 | Family Medicine Progress Note ---
Date of Service January 28, 2019 Assessment & Plan (1) GBS (Guillain [place] syndrome): 38-year-old male was admitted on 26 January 2019 for muscle weakness and elevated CK. Of note, patient was admitted for similar symptoms from . Guillian-[place] syndrome: Progressive, persistent weakness and gait dysfunction particularly in the lower extremities. MRI imaging of the brain as well as cervical, thoracic, and lumbar spine noted no acute findings (see full reports). See related neurology notes as well as LP results (culture NGTD). Started on IVIG. Multiple serologies pending. Currently improving, however if clinical deterioration would need transfer to tertiary center. Possible Lyme disease with past h/o Lyme disease: Prior course of doxycycline about two years ago. Recent Equivocal Lyme positive IgM but negative IgG. Various IgG bands pending. Started on IV Rocephin. Left-sided Maravilla's palsy: Improving since admission. Differential includes GBS, Lyme, or HSV. Will cover with prednisone 60 mg as well as Valtrex 1 gm for 7 days. Monitor BMP while on Valtrex. Rhabdomyolysis: CK as high as 1045. Since trended down. Will hold IVF for now. Elevated blood pressure: As inpatient, BP as high as 168/93. Would benefit from monitoring as outpatient. Ongoing medical issues: - GERD: Continue PPI. Code status: Full code. Diet: Regular. DVT prophy: Chuyx, SCDs. PT/OT: PT noted independent for mobility. OT pending. Disbo: Admitted to [facility]. 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 (2) Lyme disease: (3) Maravilla's palsy: (4) Rhabdomyolysis: (5) Elevated blood pressure reading: (6) GERD (gastroesophageal reflux disease): Supervising Physician Co-Signing Physician Notes Resident Physician Supervision Note: I independently interviewed and examined the patient and verified the haley history and physical, reviewed labs and image studies, discussed the case with the resident Dr. Cabello and agree with the findings and care plan. Subjective Found patient resting very comfortably in bed. Overall he said that his generalized weakness was about the same as yesterday but still improved since initial onset. He thinks his left-sided Maravilla's palsy is improving as well. He notes continued fatigue with any attempted ambulation. He also has some mild generalized headache. Otherwise denies any other acute concerns. Review of Systems Review of Systems: ROS per HPI. Physical Exam Physical Exam: General Appearance: Awake, alert & oriented, comfortable in general, NAD. CV: +S1S2 RRR, no murmur. Pulm: Clear to auscultation throughout. Abdomen: +BS, soft, non-tender, non-distended. Extremities: No pedal edema or calf tenderness. Neuro: Slight left lower extremity weakness and straight leg raise, otherwise 5/5 strength on dorsi and plantar flexion bilaterally. Slight weakness on triceps extension bilaterally. Mild right-sided facial droop on explicit smiling. Results & Data Vital Signs (Past 12 Hours) Vital Signs Temp Pulse Resp BP BP Pulse Ox 01/28/19 15:42 36.7 C 81 18 144/90 H 95 01/28/19 07:19 36.7 C 76 18 168/93 H 94 Laboratory Results 01/28/19 01/28/19 Range/Units 05:55 05:55 WBC 8.87 (4.8-10.8) K/uL RBC 4.43 L (4.7-6.1) M/uL Hgb 13.2 L (14.0-18.0) g/dL Hct 38.0 L (42-52) % MCV 85.8 (80-100) fL MCH 29.8 (25-34) pg MCHC 34.7 (32-36) g/dL RDW Std Deviation 38.3 (36.4-46.3) fL RDW Coeff of Ricardo 12.3 (11.5-14.5) % Plt Count 197 (130-400) K/uL MPV 9.6 (7.4-10.4) fL Immature Gran % (Auto) 0.3 % Neut % (Auto) 62.6 % Lymph % (Auto) 24.2 % Granite % (Auto) 10.3 % Eos % (Auto) 2.0 % Baso % (Auto) 0.6 % Immature Gran # (Auto) 0.03 H (0.00-0.02) K/uL Neut # (Auto) 5.55 (1.4-6.5) K/uL Lymph # (Auto) 2.15 (1.2-3.4) K/uL Granite # (Auto) 0.91 H (0.11-0.59) K/uL Eos # (Auto) 0.18 (0-0.5) K/uL Baso # (Auto) 0.05 (0-0.2) K/uL Sodium 141 (136-145) mmol/L Potassium 3.8 (3.5-5.1) mmol/L Chloride 110 H (98-107) mmol/L Carbon Dioxide 26 (21-32) mmol/L Anion Gap 5.0 (3-11) BUN 21 H (7-18) mg/dl Creatinine 1.21 (0.6-1.4) mg/dl Est Cr Clr Drug Dosing 95.9 ml/min Est GFR ( Amer) 86.3 Est GFR (Non-Af Amer) 74.4 BUN/Creatinine Ratio 17.0 (10-20) Glucose 106 H (70-99) mg/dl Calcium 7.6 L (8.5-10.1) mg/dl Total Bilirubin 0.4 (0.2-1) mg/dl AST 26 (15-37) U/L ALT 57 (12-78) U/L Alkaline Phosphatase 61 (45-117) U/L Total Creatine Kinase 574 H (39-308) U/L Total Protein 7.1 (6.4-8.2) gm/dl Albumin 3.0 L (3.4-5.0) gm/dl Globulin 4.1 H (2.5-4.0) gm/dl Albumin/Globulin Ratio 0.7 L (0.9-2) Medications Administered Current Inpatient Medications Enoxaparin Sodium (Lovenox) 40 mg SQ QPM [facility] Stop: 02/25/19 20:59 Last Admin: 01/27/19 20:14 Dose: Not Given Documented by: Gadobutrol (Gadavist 65ml) 11 ml IV ONCE PRN PRN Reason: Interaction Checking Stop: 01/30/19 18:51 Last Admin: 01/26/19 18:53 Dose: 11 ml Documented by: Sodium Chloride (Nss 1000ml) 1,000 mls @ 125 mls/hr IV .Q8H [facility] Stop: 02/25/19 17:44 Last Infusion: 01/28/19 15:25 Dose: Infused Documented by: Ceftriaxone Sodium 2,000 mg/ (Dextrose) 70 mls @ 100 mls/hr IV Q12H [facility]; Protocol Stop: 02/06/19 07:59 Last Infusion: 01/28/19 09:12 Dose: Infused Documented by: Immune Globulin (Privigen 10%) 200 mls @ 0 mls/hr IV DAILY@0900,1000 [facility]; Protocol Stop: 01/31/19 23:59 Last Infusion: 01/28/19 12:08 Dose: Infused Documented by: Pantoprazole Sodium (Protonix) 40 mg PO QAM [facility] Stop: 02/26/19 08:59 Last Admin: 01/28/19 08:17 Dose: 40 mg Documented by: Prednisone (Prednisone) 60 mg PO DAILY [facility] Stop: 02/02/19 15:59 Last Admin: 01/28/19 08:17 Dose: 60 mg Documented by: Valacyclovir HCl (Valtrex) 1,000 mg PO TID [facility] Stop: 02/02/19 20:59 Last Admin: 01/28/19 13:56 Dose: 1,000 mg Documented by: PG Care Time/CCT Total # of Minutes Spent Total Time Spent with Patient: Total time spent is greater than 50% in coordination of care (as documented) at patient's floor/unit and/or counseling patient: Resident Activity Tracking Resident Involvement: Resident Care Provided Care Provided: Adult Hospital Medicine (1) Rhabdomyolysis Rhabdomyolysis type: non-traumatic Qualified Code(s): M62.82 - Rhabdomyolysis
[2019-01-28] MEDS: ENOXAPARIN INJ 40 MG/0.4 ML SYR SQ SCH (20:38)
[2019-01-29] MEDS: cefTRIAXone SODIUM 2,000 MG in DEXTROSE 5% 50 ML IV SCH ×2 (07:55→19:54)
[2019-01-29] MEDS: PANTOprazole 40 MG TAB PO SCH (07:57)
[2019-01-29] MEDS: VALACYCLOVIR HCL 500 MG TABLET PO SCH ×3 (07:57→20:51)
[2019-01-29] MEDS: predniSONE 20 MG TAB PO SCH (07:57)
[2019-01-29] MEDS: IMMUNE GLOBULIN (HUMAN) 200 ML IV SCH ×2 (10:40→12:20)
--- NOTE | 2019-01-29 11:32 | Neurology Progress Note ---
Date of Service January 29, 2019 Assessment & Plan (1) Muscle weakness: (2) Gait instability: (3) Rhabdomyolysis: (4) Lyme disease: (5) GBS (Guillain [place] syndrome): This patient has had a subacute course of weakness. I saw him on January 22 and he did not have a specific weakness pattern but it seemed more proximal than distal. He had reflexes at that time as well. There was a Lyme IgM screen which was positive but the Western blot is not back yet. He was put on IV Rocephin and after 1 2 g dose he felt markedly better the next day. He was discharged but then became worse over time it was Re admitted 2 days ago. Today, the patient is improved with strength and has no proximal weakness. He does have distal hand weakness. Reflexes are decreased or absent in the lower extremities. This pattern (and the response he had to Rocephin earlier this month) is not consistent with Guillain-[place] syndrome. Nevertheless, I cannot entirely exclude a variant of Guillain-Dutta syndrome or other inflammatory condition. He has mildly elevated CSF protein of 71 with no cells. He was on antibiotics which could mask cells. A viral process would not be masked by an antibiotic and I am not convinced he has a viral condition at this time. It is still possible that he has Lyme disease that responded better to IV Rocephin than the oral doxycycline. A serum Western blot and now CSF Lyme antibody titers are all pending. On admission this time it was felt that he may have a left Maravilla's palsy but I did not appreciate this today. He has no facial droop today. The patient is on a IVIG protocol and continues on IV Rocephin. He is improved clinically today compared to admission. Recommendations: 1. Continue the 5 day IVIG course as per protocol. 2. Continue the IV Rocephin course as well and we are awaiting the Lyme Western blot results. 3. Physical therapy and increase activity as able. Overall, I spent a total of 25 minutes with this case including review of records, direct evaluation the patient bedside, discussing the case with the patient at bedside, his RN, and Dr. Winslow, including differential diagnosis and treatment options. Subjective He feels better today. He has better walking and more strength. This morning, prior to his IVIG infusion, he has some chest pain which resolved easily and he had stable vital signs. Currently he has no chest pain in his blood pressure is 150/95 with a pulse of 94 and regular. Physical Exam Physical Exam: On exam today arm strength is 5/5 diffusely proximally with some 4/5 strength with intrinsic hand muscles bilaterally. 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 Leg strength is 5/5 diffusely bilaterally. Coordination is normal in the arms without tremor. Extraocular eye muscles are intact without nystagmus. There is no facial droop. Mood and affect is normal appropriate. Speech is normal without aphasia or dysarthria. Results & Data Vital Signs (Past 12 Hours) Vital Signs Temp Pulse Pulse Resp BP BP Pulse Ox 01/29/19 10:49 36.7 C 94 H 150/95 H 92 01/29/19 10:29 99 H 96 H 160/104 H 160/103 H 01/29/19 07:18 36.9 C 73 20 119/70 96 01/29/19 00:09 36.8 C 80 16 120/67 98 PG Care Time/CCT Total # of Minutes Spent Total Time Spent with Patient: Total time spent is greater than 50% in coordination of care (as documented) at patient's floor/unit and/or counseling patient: (1) Rhabdomyolysis Rhabdomyolysis type: non-traumatic Qualified Code(s): M62.82 - Rhabdomyolysis
--- NOTE | 2019-01-29 11:48 | Family Medicine Progress Note ---
Date of Service January 29, 2019 Assessment & Plan (1) GBS (Guillain [place] syndrome): 38-year-old male was admitted on 26 January 2019 for muscle weakness and elevated CK. Of note, patient was admitted for similar symptoms from -. Guillian-[place] syndrome: Progressive, persistent weakness and gait dysfunction particularly in the lower extremities. MRI imaging of the brain as well as cervical, thoracic, and lumbar spine noted no acute findings (see full reports). See related neurology notes as well as LP results (culture NGTD). 07Sep started on IVIG for planned 5-day course. Multiple serologies pending. Currently improving, however if clinical deterioration would need transfer to tertiary center. History of Lyme disease: Prior course of doxycycline about two years ago. Equivocal Lyme positive IgM but negative IgG. Various IgG tests pending. 06Sep started on IV Rocephin. Left-sided Maravilla's palsy: Improving since admission. Differential includes GBS, Lyme, or HSV. Covering with prednisone 60 mg (started 05Se) as well as Valtrex 1 gm for 7 days (started 05Sep). Monitor BMP while on Valtrex. Rhabdomyolysis: CK as high as 1045. Since trended down. Holding IVF for now. Elevated blood pressure: As inpatient, BP as high as 168/93. Would benefit from monitoring as outpatient. Ongoing medical issues: - GERD: Continue PPI. Code status: Full code. Diet: Regular. DVT prophy: Lovenox, SCDs. PT/OT: PT noted independent for mobility. OT pending. Disbo: Admitted to [facility]. 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 (2) Lyme disease: (3) Maravilla's palsy: (4) Rhabdomyolysis: (5) Elevated blood pressure reading: (6) GERD (gastroesophageal reflux disease): Supervising Physician Co-Signing Physician Notes Resident Physician Supervision Note: I independently interviewed and examined the patient and verified the haley history and physical, reviewed labs and image studies, discussed the case with the resident Dr. Cabello and agree with the findings and care plan. Subjective Found patient resting comfortably in bed. Continues to say that his overall generalized weakness was improved since admission, perhaps a bit improved since yesterday, but that he is not yet at his baseline. He denies any other focal symptoms to include headache, extremity pains, or other acute concerns. Review of Systems Review of Systems: ROS per HPI. Physical Exam Physical Exam: General Appearance: Awake, alert & oriented, comfortable in general, NAD. CV: +S1S2 RRR, no murmur. Pulm: Clear to auscultation throughout. Abdomen: +BS, soft, non-tender, non-distended. Extremities: No pedal edema or calf tenderness. Neuro: Slight left lower extremity weakness and straight leg raise, otherwise 5/5 strength on dorsi and plantar flexion bilaterally. Slight weakness on triceps extension on left only. Results & Data Vital Signs (Past 12 Hours) Vital Signs Temp Pulse Pulse Resp BP BP Pulse Ox 01/29/19 10:49 36.7 C 94 H 150/95 H 92 01/29/19 10:29 99 H 96 H 160/104 H 160/103 H 01/29/19 07:18 36.9 C 73 20 119/70 96 01/29/19 00:09 36.8 C 80 16 120/67 98 Medications Administered Current Inpatient Medications Enoxaparin Sodium (Lovenox) 40 mg SQ QPM [facility] Stop: 02/25/19 20:59 Last Admin: 01/28/19 20:38 Dose: Not Given Documented by: Gadobutrol (Gadavist 65ml) 11 ml IV ONCE PRN PRN Reason: Interaction Checking Stop: 01/30/19 18:51 Last Admin: 01/26/19 18:53 Dose: 11 ml Documented by: Sodium Chloride (Nss 1000ml) 1,000 mls @ 125 mls/hr IV .Q8H [facility] Stop: 02/25/19 17:44 Last Infusion: 01/28/19 15:25 Dose: Infused Documented by: Ceftriaxone Sodium 2,000 mg/ (Dextrose) 70 mls @ 100 mls/hr IV Q12H [facility]; Protocol Stop: 02/06/19 07:59 Last Infusion: 01/29/19 08:51 Dose: Infused Documented by: Immune Globulin (Privigen 10%) 200 mls @ 0 mls/hr IV DAILY@0900,1000 [facility]; Protocol Stop: 01/31/19 23:59 Last Admin: 01/29/19 10:40 Dose: 66 mls/hr Documented by: Pantoprazole Sodium (Protonix) 40 mg PO QAM [facility] Stop: 02/26/19 08:59 Last Admin: 01/29/19 07:57 Dose: 40 mg Documented by: Prednisone (Prednisone) 60 mg PO DAILY [facility] Stop: 02/02/19 15:59 Last Admin: 01/29/19 07:57 Dose: 60 mg Documented by: Valacyclovir HCl (Valtrex) 1,000 mg PO TID [facility] Stop: 02/02/19 20:59 Last Admin: 01/29/19 07:57 Dose: 1,000 mg Documented by: PG Care Time/CCT Total # of Minutes Spent Total Time Spent with Patient: Total time spent is greater than 50% in coordination of care (as documented) at patient's floor/unit and/or counseling patient: Resident Activity Tracking Resident Involvement: Resident Care Provided Care Provided: Adult Hospital Medicine (1) Rhabdomyolysis Rhabdomyolysis type: non-traumatic Qualified Code(s): M62.82 - Rhabdomyolysis
[2019-01-29] MEDS: ACETAMINOPHEN 325 MG TAB PO PRN (18:07)
[2019-01-29] MEDS: ENOXAPARIN INJ 40 MG/0.4 ML SYR SQ SCH (20:59)
[2019-01-30] MEDS: cefTRIAXone SODIUM 2,000 MG in DEXTROSE 5% 50 ML IV SCH ×2 (07:37→20:30)
[2019-01-30] MEDS: IMMUNE GLOBULIN (HUMAN) 200 ML IV SCH ×2 (08:34→09:57)
[2019-01-30] MEDS: VALACYCLOVIR HCL 500 MG TABLET PO SCH ×3 (08:35→20:30)
[2019-01-30] MEDS: predniSONE 20 MG TAB PO SCH (08:35)
[2019-01-30] MEDS: PANTOprazole 40 MG TAB PO SCH (08:35)
[2019-01-30] MEDS: ACETAMINOPHEN 325 MG TAB PO PRN (10:06)
--- NOTE | 2019-01-30 10:54 | Neurology Progress Note ---
Date of Service January 30, 2019 Assessment & Plan (1) GBS (Guillain [place] syndrome): I continue to suspect this patient has Guillain-[place]utta syndrome based on his presentation of subacute progressive generalized weakness, loss of lower extremity deep tendon reflexes, and albumino-cytologic dissociation on lumbar puncture. He also continues to exhibit a mild left Maravilla's palsy as evidenced by diminished furrowing of the left brow, inability to completely close the left eyelid, and mild weakness of the left lower facial musculature. 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 He seems to be responding well to IVIG and he should continue with this 5-day treatment per protocol. I do not object to continuing with Rocephin for possible Lyme disease. Follow-up with results of Western blot and Lyme CSF DNA PCR when available. At time of discharge it would be reasonable to continue antibiotic therapy with doxycycline if additional Lyme confirmatory testing has not returned. No additional neurological recommendations at this time. Please contact me if I may be of further assistance. Present on Admission?: No Subjective Follow-up for suspected Guillain [place] syndrome. The patient is a 38-year-old male who was readmitted to the hospital in January 26, 2019 with progressive weakness, gait dysfunction, and interval development of a left Maravilla's palsy. He was noted to have diminished deep tendon reflexes and absent Achilles tendon reflexes as well as albumin no cytologic dissociation on lumbar puncture. Imaging of the brain, cervical, thoracic, and lumbar spine are unrevealing. He has an equivocal Lyme IgM antibody, Western blot pending. He has had a mild elevation in CKs which have been improving. The patient denies muscle pain. He reports that his generalized weakness is improving. He is able to stand up out of the bed without much difficulty at this time. 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 He has been able to ambulate in his hospital room without significant difficulty and indicates that his legs feel much stronger. He continues to be aware of some mild weakness of the left face, especially some inability to completely close the left eyelid. He denies any diplopia. He continues with IVIG and has not experienced any specific side effects. No headache or neck stiffness. Rocephin and Valtrex have been continued as well. Review of Systems Constitutional: no fever, no chills and no fatigue Eyes: as per Subjective / HPI; no blind spots and no diplopia Neurologic: + unsteadiness and + generalized weakness; no localized weakness and no loss of sensation Physical Exam Physical Exam: The patient is a well-developed, well-nourished adult male. He is alert and fully oriented. Recent and remote memory intact. Attention and concentration normal. Patient exhibits a normal spontaneous speech pattern as well as an age-appropriate fund of knowledge. Visual mcadams full to confrontation. Visual acuity normal. Pupils equal round react to light and accommodation. Eye movements normal. There is slight weakness of the left upper eyelid noted with inability to completely close the eyelid, especially as compared to the right. Facial sensation intact. There is mild weakness of the left upper and lower facial musculature noted with incomplete brow furrow on the left and a mild left lower facial droop as well, especially as compared to the right. Hearing intact. Palate elevates to midline. Shoulder shrug intact. Tongue protrudes to midline. Sensation intact to all modalities in all 4 limbs. Deep tendon reflexes are absent at the patellar and Achilles tendons bilaterally. There are diminished for the arms bilaterally. There is no dysdiadochokinesia or dysmetria [id number] or [id number] bilaterally. Patient exhibits fairly normal-appearing gait and station. He is able to arise from a seated position out of his bed without difficulty this morning. No Madina today. 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 Muscle tone normal throughout. No atrophy. No abnormal movements observed. Results & Data Vital Signs (Past 12 Hours) Vital Signs Temp Pulse Resp BP Pulse Ox 01/30/19 07:13 36.8 C 75 20 130/80 99 01/29/19 23:39 36.8 C 89 18 121/71 96 PG Care Time/CCT Total # of Minutes Spent Total Time Spent with Patient: Total time spent is greater than 50% in coordination of care (as documented) at patient's floor/unit and/or counseling patient:
--- NOTE | 2019-01-30 15:38 | Family Medicine Progress Note ---
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 Of note, patient was admitted for similar symptoms from -. 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 MRI imaging of the brain as well as cervical, thoracic, and lumbar spine noted no acute findings (see full reports). See related neurology notes as well as LP results (culture NGTD). 07Sep started on IVIG for planned 5-day course. Multiple serologies pending. Currently improving, however if clinical deterioration would need transfer to tertiary center, but no signs that will be necessary. History of Lyme disease: Prior course of doxycycline about two years ago. Equivocal Lyme positive IgM but negative IgG. Various IgG tests pending. 06Sep started on IV Rocephin. Left-sided Maravilla's palsy: Improving since admission. Differential includes GBS, Lyme, or HSV. Covering with prednisone 60 mg (started 05Se) as well as Valtrex 1 gm for 7 days (started 05Sep). Monitor BMP while on Valtrex. Rhabdomyolysis: CK as high as 1045. Since trended down. Holding IVF for now. Elevated blood pressure: As inpatient, BP as high as 168/93. Would benefit from monitoring as outpatient. Ongoing medical issues: - GERD: Continue PPI. Code status: Full code. Diet: Regular. DVT prophy: Lovenox, SCDs. PT/OT: PT noted independent for mobility. OT pending. Disbo: Admitted to [facility]. 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 (2) Lyme disease: (3) Maravilla's palsy: (4) Rhabdomyolysis: (5) Elevated blood pressure reading: (6) GERD (gastroesophageal reflux disease): Supervising Physician Co-Signing Physician Notes Attending attestation Pt seen and examined in concert with Dr. Singletary. In agreement with the documented findings as noted in the resident documentation with any exceptions or additions as noted here. Improving weakness but overall much nearer to baseline. On examination, 4++/5 weakness of the b/l LE/UE distally. persistent L facial palsy as noted. S1/S2 nl RRR no MCG. CTAB. Abd NT/ND BS+ve GBS - Complete course of IVIG x 5 days. Neurology consultation appreciated. Maravilla's palsy, left - continue pred and valacyclovir to complete course. h/o Lyme disease - continue rocephin pending clarifying lab work, but less likely causative. Elevated BP - continue to monitor Else see resident documentation as noted. Subjective Notes no significant improvement since yesterday but he has had significant improvement since admisison. No complaints of pain. No nausea, vomiting, diarrhea, chest pain, shortness of breath. Physical Exam Constitutional: WD/WN, vitals as above Eyes: PERRL and EOM intact bilaterally Neck: normal visual inspection and trachea midline Respiratory: normal respiratory effort, lungs clear to auscultation Musculoskeletal: Head/Neck/Chest: normocephalic and head atraumatic Skin: no rashes, warm and dry Neurologic: CN's II-XI intact bilaterally, moves all extremities and awake No significant weakness noted when evaluating extremities, but some mild delay when attempting to initiate. Psychiatric: A+Ox3, euthymic affect Results & Data Vital Signs (Past 12 Hours) Vital Signs Temp Pulse Pulse Resp BP Pulse Ox 01/30/19 15:07 36.8 C 81 16 154/99 H 96 01/30/19 07:13 36.8 C 75 20 130/80 99 Medications Administered Acetaminophen (Tylenol) 650 mg PO Q4H PRN PRN Reason: Pain Stop: 02/28/19 17:56 Last Admin: 01/30/19 10:06 Dose: 650 mg Documented by: [id number] Admin: 01/29/19 18:07 Dose: 650 mg Documented by: [id number] Enoxaparin Sodium (Lovenox) 40 mg SQ QPM RACHEAL Stop: 02/25/19 20:59 Last Admin: 01/29/19 20:59 Dose: Not Given Documented by: [id number] Admin: 01/28/19 20:38 Dose: Not Given Documented by: [id number] Admin: 01/27/19 20:14 Dose: Not Given Documented by: [id number] Admin: 01/26/19 21:27 Dose: Not Given Documented by: [id number] Gadobutrol (Gadavist 65ml) 11 ml IV ONCE PRN PRN Reason: Interaction Checking Stop: 01/30/19 18:51 Last Admin: 01/26/19 18:53 Dose: 11 ml Documented by: [id number] Sodium Chloride (Nss 1000ml) 1,000 mls @ 125 mls/hr IV .Q8H RACHEAL Stop: 02/25/19 17:44 Last Infusion: 01/28/19 15:25 Dose: 0 mls/hr Documented by: [id number] Admin: 01/28/19 09:31 Dose: 125 mls/hr Documented by: [id number] Infusion: 01/28/19 09:31 Dose: 125 mls/hr Documented by: [id number] Admin: 01/28/19 02:10 Dose: 125 mls/hr Documented by: [id number] Infusion: 01/28/19 01:40 Dose: 125 mls/hr Documented by: [id number] Admin: 01/27/19 17:40 Dose: 125 mls/hr Documented by: [id number] Infusion: 01/27/19 17:40 Dose: 125 mls/hr Documented by: [id number] Admin: 01/27/19 10:00 Dose: 125 mls/hr Documented by: [id number] Infusion: 01/27/19 10:00 Dose: 125 mls/hr Documented by: [id number] Admin: 01/27/19 03:57 Dose: 125 mls/hr Documented by: [id number] Infusion: 01/27/19 03:57 Dose: 125 mls/hr Documented by: [id number] Admin: 01/26/19 19:59 Dose: 125 mls/hr Documented by: [id number] Ceftriaxone Sodium 2,000 mg/ (Dextrose) 70 mls @ 100 mls/hr IV Q12H RACHEAL; Protocol Stop: 02/06/19 07:59 Last Infusion: 01/30/19 08:29 Dose: 0 mls/hr Documented by: [id number] Admin: 01/30/19 07:37 Dose: 100 mls/hr Documented by: [id number] Infusion: 01/29/19 20:51 Dose: 0 mls/hr Documented by: [id number] Admin: 01/29/19 19:54 Dose: 100 mls/hr Documented by: [id number] Infusion: 01/29/19 08:51 Dose: 0 mls/hr Documented by: [id number] Admin: 01/29/19 07:55 Dose: 100 mls/hr Documented by: [id number] Infusion: 01/28/19 21:30 Dose: 0 mls/hr Documented by: [id number] Admin: 01/28/19 20:05 Dose: 100 mls/hr Documented by: [id number] Infusion: 01/28/19 09:12 Dose: 0 mls/hr Documented by: [id number] Admin: 01/28/19 08:16 Dose: 100 mls/hr Documented by: [id number] Infusion: 01/27/19 22:17 Dose: 0 mls/hr Documented by: [id number] Admin: 01/27/19 20:14 Dose: 100 mls/hr Documented by: [id number] Infusion: 01/27/19 08:58 Dose: 0 mls/hr Documented by: [id number] Admin: 01/27/19 08:05 Dose: 100 mls/hr Documented by: [id number] Immune Globulin (Privigen 10%) 200 mls @ 0 mls/hr IV DAILY@0900,1000 RACHEAL; Protocol Stop: 01/31/19 23:59 Last Infusion: 01/30/19 11:01 Dose: 0 mls/hr Documented by: [id number] Cosigned by: [id number] Admin: 01/30/19 09:57 Dose: 264 mls/hr Documented by: [id number] Cosigned by: [id number] Infusion: 01/30/19 09:20 Dose: 264 mls/hr Documented by: [id number] Cosigned by: [id number] Admin: 01/30/19 08:34 Dose: 264 mls/hr Documented by: [id number] Cosigned by: [id number] Infusion: 01/29/19 13:35 Dose: 0 mls/hr Documented by: [id number] Cosigned by: [id number] Infusion: 01/29/19 13:00 Dose: 264 mls/hr Documented by: [id number] Cosigned by: [id number] Infusion: 01/29/19 12:45 Dose: 132 mls/hr Documented by: [id number] Cosigned by: [id number] Admin: 01/29/19 12:20 Dose: 66 mls/hr Documented by: [id number] Cosigned by: [id number] Infusion: 01/29/19 12:20 Dose: 66 mls/hr Documented by: [id number] Cosigned by: [id number] Admin: 01/29/19 10:40 Dose: 66 mls/hr Documented by: [id number] Cosigned by: [id number] Infusion: 01/28/19 12:08 Dose: 0 mls/hr Documented by: [id number] Cosigned by: [id number] Admin: 01/28/19 11:11 Dose: 66 mls/hr Documented by: [id number] Cosigned by: [id number] Infusion: 01/28/19 11:11 Dose: 66 mls/hr Documented by: [id number] Cosigned by: [id number] Admin: 01/28/19 09:32 Dose: 66 mls/hr Documented by: [id number] Cosigned by: [id number] Pantoprazole Sodium (Protonix) 40 mg PO QAM RACHEAL Stop: 02/26/19 08:59 Last Admin: 01/30/19 08:35 Dose: 40 mg Documented by: [id number] Admin: 01/29/19 07:57 Dose: 40 mg Documented by: [id number] Admin: 01/28/19 08:17 Dose: 40 mg Documented by: [id number] Admin: 01/27/19 08:05 Dose: 40 mg Documented by: [id number] Prednisone (Prednisone) 60 mg PO DAILY RACHEAL Stop: 02/02/19 15:59 Last Admin: 01/30/19 08:35 Dose: 60 mg Documented by: [id number] Admin: 01/29/19 07:57 Dose: 60 mg Documented by: [id number] Admin: 01/28/19 08:17 Dose: 60 mg Documented by: [id number] Admin: 01/27/19 08:05 Dose: 60 mg Documented by: [id number] Admin: 01/26/19 19:24 Dose: 60 mg Documented by: [id number] Valacyclovir HCl (Valtrex) 1,000 mg PO TID RACHEAL Stop: 02/02/19 20:59 Last Admin: 01/30/19 13:01 Dose: 1,000 mg Documented by: [id number] Admin: 01/30/19 08:35 Dose: 1,000 mg Documented by: [id number] Admin: 01/29/19 20:51 Dose: 1,000 mg Documented by: [id number] Admin: 01/29/19 13:37 Dose: 1,000 mg Documented by: [id number] Admin: 01/29/19 07:57 Dose: 1,000 mg Documented by: [id number] Admin: 01/28/19 20:37 Dose: 1,000 mg Documented by: [id number] Admin: 01/28/19 13:56 Dose: 1,000 mg Documented by: [id number] Admin: 01/28/19 08:17 Dose: 1,000 mg Documented by: [id number] Admin: 01/27/19 20:14 Dose: 1,000 mg Documented by: [id number] Admin: 01/27/19 13:29 Dose: 1,000 mg Documented by: [id number] Admin: 01/27/19 08:05 Dose: 1,000 mg Documented by: [id number] Admin: 01/26/19 21:23 Dose: 1,000 mg Documented by: [id number] PG Care Time/CCT Total # of Minutes Spent Total Time Spent with Patient: Total time spent is greater than 50% in coordination of care (as documented) at patient's floor/unit and/or counseling patient: Resident Activity Tracking Resident Involvement: Resident Care Provided Care Provided: Adult Hospital Medicine (1) Rhabdomyolysis Rhabdomyolysis type: non-traumatic Qualified Code(s): M62.82 - Rhabdomyolysis
[2019-01-30] MEDS: ENOXAPARIN INJ 40 MG/0.4 ML SYR SQ SCH (20:30)
[2019-01-31 00:55] LABS: CMV DNA Qnt Real Time PCR <200 IU/mL (<200); CMV DNA Quant PCR <2.30 log IU/mL (<2.30)
--- NOTE | 2019-01-31 07:02 | Family Medicine Progress Note ---
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 Of note, patient was admitted for similar symptoms from -. Guillian-[place] syndrome: Progressive, persistent weakness and gait dysfunction particularly in the lower extremities. MRI imaging of the brain as well as cervical, thoracic, and lumbar spine noted no acute findings (see full reports). See related neurology notes as well as LP results (culture NGTD). 07Sep started on IVIG for planned 5-day course. Multiple serologies pending. He has significantly improved and he has one more day of IVIG for tomorrow , then will be okay for discharge home. History of Lyme disease: Prior course of doxycycline about two years ago. Equivocal Lyme positive IgM but negative IgG. Various IgG tests pending. 06Sep started on IV Rocephin. Left-sided Maravilla's palsy: Improving since admission. Differential includes GBS, Lyme, or HSV. Covering with prednisone 60 mg (started 05Se) as well as Valtrex 1 gm for 7 days (started 05Se). Monitor BMP while on Valtrex. Rhabdomyolysis: CK as high as 1045. Since trended down. Holding IVF for now. Elevated blood pressure: As inpatient, BP as high as 168/93. Would benefit from monitoring as outpatient. Ongoing medical issues: - GERD: Continue PPI. Code status: Full code. Diet: Regular. DVT prophy: Lovenox, SCDs. PT/OT: PT noted independent for mobility. OT pending. Disbo: Admitted to [facility]. 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 (2) Lyme disease: (3) Maravilla's palsy: (4) Rhabdomyolysis: (5) Elevated blood pressure reading: (6) GERD (gastroesophageal reflux disease): Supervising Physician Co-Signing Physician Notes Attending attestation Pt seen and examined in concert with Dr. Singletary. In agreement with the documented findings as noted in the resident documentation with any exceptions or additions as noted here. Overall weakness continues to improve, patient anxious to complete therapy On examination, no appreciable weakness of the extremities (5/5 bilateral upper and lower). persistent L facial palsy has improved comparably as well. S1/S2 nl RRR no MCG. CTAB. Abd NT/ND BS+ve GBS - Day 4/5 of IVIG completed. Neurology consultation. Maravilla's palsy, left - continue pred and valacyclovir to complete course. h/o Lyme disease - continue rocephin pending clarifying lab work, but less likely causative. Elevated BP - continue to monitor Else see resident documentation as noted. Subjective Notes no significant improvement since yesterday but he has had significant improvement since admisison. No complaints of pain. No nausea, vomiting, diarrhea, chest pain, shortness of breath. Physical Exam Constitutional: WD/WN, vitals as above Eyes: PERRL and EOM intact bilaterally Neck: normal visual inspection and trachea midline Respiratory: normal respiratory effort, lungs clear to auscultation Cardiovascular: RRR, no murmur, no edema Musculoskeletal: Head/Neck/Chest: normocephalic and head atraumatic 5/5 stregnth throughout, mild left facial palsy Skin: no rashes, warm and dry Neurologic: CN's II-XI intact bilaterally, moves all extremities and awake Psychiatric: A+Ox3, euthymic affect Results & Data Vital Signs (Past 12 Hours) Vital Signs Temp Pulse Resp BP Pulse Ox 01/30/19 22:35 36.8 C 80 18 134/78 95 PG Care Time/CCT Total # of Minutes Spent Total Time Spent with Patient: Total time spent is greater than 50% in coordination of care (as documented) at patient's floor/unit and/or counseling patient: Resident Activity Tracking Resident Involvement: Resident Care Provided Care Provided: Adult Hospital Medicine (1) Rhabdomyolysis Rhabdomyolysis type: non-traumatic Qualified Code(s): M62.82 - Rhabdomyolysis
[2019-01-31] MEDS: VALACYCLOVIR HCL 500 MG TABLET PO SCH ×3 (09:42→19:56)
[2019-01-31] MEDS: predniSONE 20 MG TAB PO SCH (09:42)
[2019-01-31] MEDS: PANTOprazole 40 MG TAB PO SCH (09:42)
[2019-01-31] MEDS: cefTRIAXone SODIUM 2,000 MG in DEXTROSE 5% 50 ML IV SCH ×2 (09:46→19:53)
[2019-01-31] MEDS: IMMUNE GLOBULIN (HUMAN) 200 ML IV SCH ×3 (11:51→23:34)
[2019-01-31] MEDS ORDERED: IMMUNE GLOBULIN (HUMAN) 200 ML IV SCH (13:00)
[2019-01-31] MEDS: ENOXAPARIN INJ 40 MG/0.4 ML SYR SQ SCH (19:56)
[2019-01-31 21:52] LABS: Herpes Virus 6 (DNA) Not Detected (Not Detected); Herpes Virus 6 (DNA) Source Plasma
--- NOTE | 2019-02-01 08:24 | Discharge Summary ---
Date of Service February 01, 2019 Admission HPI Per Admitting Provider Mr. Muñoz states he had improved on discharge in terms of muscle strength but started deteriorating progressively since then. In particular he noted problems with walking, and the inability to close his left eye and right mouth drooping lower than the left. He also complains today of bilateral tenderness and burning in his jaw and along his temples. Otherwise states he is unchanged, with preserved upper body muscle strength. Of note, pt has a Hx of removing multiple ticks off of him in the past few months with Hx of Lyme disease. Has been previously treated with doxycycline before hospitalization and states he has been compliant with the doxycycline he was discharged with. Principal Diagnosis Guillain [place] Syndrome Discharge Exam Constitutional WD/WN, vitals as above Eyes PERRL and EOM intact bilaterally Neck normal visual inspection and trachea midline Respiratory normal respiratory effort, lungs clear to auscultation Cardiovascular RRR, no murmur, no edema Musculoskeletal Head/Neck/Chest: normocephalic and head atraumatic no appreciated weakness; mild left facial palsy Skin no rashes, warm and dry Neurologic CN's II-XI intact bilaterally, moves all extremities and awake Psychiatric A+Ox3, euthymic affect Discharge Data Allergies Allergy/AdvReac Type Severity Reaction Status Date / Time No Known Allergies Allergy Verified 01/21/19 23:55 Consultations 01/26/19 17:09 Consult Neurology Routine Ordered Studies 01/26/19 14:30 MR lumbar spine wo/w con Urgent MR thoracic spine wo/w con Urgent 01/26/19 15:47 FL lumbar puncture diagnostic Routine Hospital Course (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 Of note, patient was admitted for similar symptoms from . Guillian-[place]in[place] syndrome: Progressive, persistent weakness and gait dysfunction particularly in the lower extremities. MRI imaging of the brain as well as cervical, thoracic, and lumbar spine noted no acute findings (see full reports). See related neurology notes as well as LP results (culture NGTD). 06Sep started on IVIG for planned 5-day course. Multiple serologies pending. He has significantly improved. History of Lyme disease: Prior course of doxycycline about two years ago. Equivocal Lyme positive IgM but negative IgG. Return of banding profile showed there was no active infection for Lyme. 06Sep started on IV Rocephin and was treated for 5 days while testing was pending. There is no need for home antibiotics. Left-sided Maravilla's palsy: Improved since admission. Differential includes GBS, Lyme, or HSV. While workup was pending, Treated empirically with prednisone 60 mg (started 05Sep) as well as Valtrex 1 gm for 7 days (started 05Sep). No further need to continue with treatment. This is presumed to be from Guillin [place]. Rhabdomyolysis: CK as high as 1045. Since trended down. Elevated blood pressure: As inpatient, BP as high as 168/93. Would benefit from monitoring as outpatient. Ongoing medical issues: - GERD: Continue PPI. Code status: Full code. Diet: Regular. DVT prophy: Chuyx, SCDs. PT/OT: PT noted independent for mobility. Disbo: [facility]. 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 (2) Lyme disease: (3) Maravilla's palsy: (4) Rhabdomyolysis: (5) Elevated blood pressure reading: (6) GERD (gastroesophageal reflux disease): Total Time Total Time Spent Total Time Spent (In Minutes): 30 Total Time Includes: Examination of the Patient, Discharge Planning, Medication Reconciliation and Communication With Other Providers Discharge Plan Discharge Items Patient Disposition: Home - Self-Care Reason For Visit: guillain barre Discharge Diagnosis: Guillain [place] syndrome Activity: Per Instructions section Non-emergency contact: Primary Care Provider Call non-emergency contact if: your symptoms worsen Follow-up/Referrals: Cece Fields PA-C [Primary Care Provider] - Diet: Regular Addtl Attending Provider Instructions: Entered below Addtl Global Compensation Manager Provider Instructions: You were treated for Guillan [place] Syndrome, which is a disease of ascending weakness. You were treated with immunoglobulin therapy for a total of 5 days. You were treated for presumed Lyme disease when you came into the hospital while lab testing for Lyme disease was pending. The Lyme disease testing was negative for current infection with Lyme disease causing bacteria Borrelia Burgdorfi. You do not need to continue treatment for Lyme. Please return to previous activity level as tolerated. Avoid dangerous activities while you regain your strength such as swimming in water where you cant stand to avoid drowning, climbing activities where a fall could cause injury. If your symptoms return, please contact your Primary Care Provider and/or return here to [facility] for evaluation. Thank you for allowing us to participate in your care. Best of luck! Pending Studies at Discharge: Yes Stand-Alone Forms: [facility], Work/School Release (Inpt) Medications and DC Order Prescriptions: Continued Prilosec OTC 20 mg Tablet,Delayed Release (Dr/Ec) 20 mg PO DAILY RF: 0 Discontinued doxycycline hyclate 100 mg capsule 100 mg PO BID 14 Days Qty: 28 RF: 0 Discharge Orders: Discharge Order (Routine); Ordered 02/01/19 Ordered By: Abebe Membreno/Other Patient Handouts: Guillain [place] Syndrome Ch, Guillain Dutta Dc Admission Data Admit Date/Time: 01/26/19 14:11 Attending Provider: Tye Villanuvea Admit Provider: Epifanio Beauchamp Primary Care Provider: Cece Fields Other Providers: Óscar Edwards ; Epifanio Beauchamp Other Interventions: Discharge Summary Assessment (RN) Last Done: 02/01/19 10:00 DC Date/Time DO NOT enter until pt leaves facility: 02/01/19 11:08 Supervising Physician Co-Signing Physician Notes Attending attestation Pt seen and examined in concert with Dr. Singletary. In agreement with the documented findings as noted in the resident documentation with any exceptions or additions as noted here. Nearly back to baseline with strength, tolerated IVIG therapy well. On examination, no appreciable weakness of the extremities (5/5 bilateral upper and lower). persistent L facial palsy improving. S1/S2 nl RRR no MCG. CTAB. Abd NT/ND BS+ve GBS - IVIG completed 5 day course. Neurology consultation and follow up. Elevated BP - continue to monitor, would follow outpatient for further mgmt Else see resident documentation as noted. Resident Activity Tracking Resident Involvement: Resident Care Provided Care Provided: Adult Hospital Medicine
[2019-02-01] MEDS: PANTOprazole 40 MG TAB PO SCH (08:41)
[2019-02-01] MEDS: predniSONE 20 MG TAB PO SCH (08:42)
[2019-02-08 22:55] LABS: Albumin 4.6 g/dL (3.5-5.2); Albumin, CSF 35.5 mg/dL (8.0-42.0); IgG CSF 6.8 mg/dL (0.8-7.7); IgG Index, CSF 0.62 (<0.66); IgG Serum 1420 mg/dL (600-1640); Lyme DNA PCR CSF or Synovial Not detected (Not Detected); Lyme DNA Source CSF; Lyme IgG CSF NO BANDS DETECTED; Lyme IgM CSF NO BANDS DETECTED; Myelin Basic Protein <2.0 mcg/L (2.0-4.0); Synthesis Rate, IgG CSF 4.5 mg/24 h (-9.9-3.3)
== END 2019-02-01 11:08 | disposition home or self-care (01) | DRG 95 ==
LOC: 4W 14:11 → SUATTDRO 14:11 → 4W 01-30 17:58